=== PATIENT | female | born 1995 | race African-American/Black ===

== ENCOUNTER 2016-07-14 10:17 | Emergency (ER) | payer SELFPAY ==
[2016-07-14 10:23] VITALS: BP 124/79
--- NOTE | 2016-07-14 10:29 | ER Document Report ---
ED Medical Screen (RME) - General Stated Complaint: ABSCESS Mode of Arrival: Ambulatory Information source: Patient Notes: Pt presents with complaints of not on vaginal area for the past 2 days. Denies fever vomiting diarrhea. TRAVEL OUTSIDE OF THE [place] IN LAST 30 DAYS: No - Related Data Allergies/Adverse Reactions: No Known Allergies Allergy (Unverified 09/25/14 00:42) Past Medical History - Immunizations Immunizations up to date: Yes Hx Diphtheria, Pertussis, Tetanus Vaccination: Yes Physical Exam - Vital signs Vitals: Temp Pulse Resp BP Pulse Ox 98.1 F 95 16 124/79 100 07/14/16 10:22 07/14/16 10:22 07/14/16 10:22 07/14/16 10:22 07/14/16 10:22 Course - Vital Signs Vital signs: Temp Pulse Resp BP Pulse Ox 98.1 F 95 16 124/79 100 07/14/16 10:22 07/14/16 10:22 07/14/16 10:22 07/14/16 10:22 07/14/16 10:22
--- NOTE | 2016-07-14 11:39 | ER Document Report ---
ED General - General Chief Complaint: Abscess Stated Complaint: ABSCESS Mode of Arrival: Ambulatory TRAVEL OUTSIDE OF THE [place] IN LAST 30 DAYS: No - HPI Onset: Other - 21-year-old female presents to the emergency room today stating she has a bump on her right vaginal labia for 2 days. - Related Data Allergies/Adverse Reactions: No Known Allergies Allergy (Verified 07/14/16 10:30) Past Medical History - General Information source: Patient - Social History Smoking Status: Never Smoker Chew tobacco use (# tins/day): No Frequency of alcohol use: None Drug Abuse: None Family History: Reviewed & Not Pertinent Patient has suicidal ideation: No Patient has homicidal ideation: No Renal/ Medical History: Denies: Hx Peritoneal Dialysis - Immunizations Immunizations up to date: Yes Hx Diphtheria, Pertussis, Tetanus Vaccination: Yes Review of Systems - Review of Systems Constitutional: No symptoms reported EENT: No symptoms reported Cardiovascular: No symptoms reported Respiratory: No symptoms reported Gastrointestinal: No symptoms reported Genitourinary: No symptoms reported Female Genitourinary: No symptoms reported Musculoskeletal: No symptoms reported Skin: No symptoms reported Hematologic/Lymphatic: No symptoms reported Neurological/Psychological: No symptoms reported Physical Exam - Vital signs Vitals: Temp Pulse Resp BP Pulse Ox 98.1 F 95 16 124/79 100 07/14/16 10:22 07/14/16 10:22 07/14/16 10:22 07/14/16 10:22 07/14/16 10:22 Interpretation: Normal - General General appearance: Appears well, Alert - HEENT Head: Normocephalic, Atraumatic Eyes: Normal Pupils: PERRL - Respiratory Respiratory status: No respiratory distress Chest status: Nontender Breath sounds: Normal Chest palpation: Normal - Cardiovascular Rhythm: Regular Heart sounds: Normal auscultation Murmur: No - Abdominal Inspection: Normal Distension: No distension Bowel sounds: Normal Tenderness: Nontender Organomegaly: No organomegaly - Genitourinary External exam: Other - Tender cellulitic area right labia no fluctuance noted at this point in time. - Back Back: Normal, Nontender - Extremities General upper extremity: Normal inspection, Nontender, Normal color, Normal ROM , Normal temperature General lower extremity: Normal inspection, Nontender, Normal color, Normal ROM , Normal temperature, Normal weight bearing. No: Jamarcus's sign - Neurological Neuro grossly intact: Yes Cognition: Normal Orientation: AAOx4 [place] Coma Scale Eye Opening: Spontaneous [place] Coma Scale Verbal: Oriented [place] Coma Scale Motor: Obeys Commands [place] Coma Scale Total: 15 Speech: Normal Motor strength normal: LUE, RUE, LLE, RLE Sensory: Normal - Psychological Associated symptoms: Normal affect, Normal mood - Skin Skin Temperature: Warm Skin Moisture: Dry Skin Color: Normal Course - Vital Signs Vital signs: Temp Pulse Resp BP Pulse Ox 98.1 F 95 16 124/79 100 07/14/16 10:22 07/14/16 10:22 07/14/16 10:22 07/14/16 10:22 07/14/16 10:22 Discharge - Discharge Clinical Impression: Folliculitis Cellulitis Qualifiers: Site of cellulitis: other site Qualified Code(s): L03.818 - Cellulitis of other sites Disposition: HOME, SELF-CARE Instructions: Trimethoprim-Sulfa ([facility]) Additional Instructions: Warm soaks 4-5 times a day. Follow-up with [facility] in 3-4 days. Return to the emergency room for any change worsening condition. Prescriptions: Tramadol HCl [Ultram 50 mg Tablet] 50 mg PO Q6HP PRN #40 tablet PRN Reason: Naproxen Sodium [Naproxen Sodium ER] 500 mg PO Q12 PRN #20 tablet.sa PRN Reason: Sulfamethoxazole/Trimethoprim [Septra-Ds 800-160 mg Tablet] 1 tab PO BID #20 tablet
== END 2016-07-14 11:44 | disposition home or self-care (01) ==
LOC: ER 10:17
DX: L03.818 Cellulitis of other sites (principal); L73.9 Follicular disorder, unspecified; N76.0 Acute vaginitis
CPT/HCPCS: 99282

== ENCOUNTER 2016-12-08 14:19 | Emergency (ER) | payer MEDICAID ==
[2016-12-08 14:36] VITALS: BP 143/83
--- NOTE | 2016-12-08 15:10 | ER Document Report ---
ED Medical Screen (RME) - General Chief Complaint: Abdominal Cramping Stated Complaint: VOMITING Time Seen by Provider: 12/08/16 15:05 Notes: 21-year-old female reports onset yesterday of pelvic cramping that causes her to vomit. Last menstrual period was sometime last month. Denies vaginal discharge, denies fever. I have greeted and performed a rapid initial assessment of this patient. A comprehensive ED assessment and evaluation of the patient, analysis of test results and completion of the medical decision making process will be conducted by additional ED providers. TRAVEL OUTSIDE OF THE [place] IN LAST 30 DAYS: No - Related Data Allergies/Adverse Reactions: No Known Allergies Allergy (Verified 12/08/16 14:33) Past Medical History - Social History Chew tobacco use (# tins/day): No Frequency of alcohol use: Rare Drug Abuse: None Renal/ Medical History: Denies: Hx Peritoneal Dialysis Surgical Hx: Negative - Immunizations Immunizations up to date: Yes Hx Diphtheria, Pertussis, Tetanus Vaccination: Yes Physical Exam - Vital signs Vitals: Temp Pulse Resp BP Pulse Ox 98 F 91 20 143/83 H 100 12/08/16 14:33 12/08/16 14:33 12/08/16 14:33 12/08/16 14:33 12/08/16 14:33 Course - Vital Signs Vital signs: Temp Pulse Resp BP Pulse Ox 98 F 91 20 143/83 H 100 12/08/16 14:33 12/08/16 14:33 12/08/16 14:33 12/08/16 14:33 12/08/16 14:33
[2016-12-08 15:34] LABS: ABSOLUTE BASOPHILS # (AUTO) 0.1 10^3/uL (0.0-0.2); ABSOLUTE EOSINOPHILS # (AUTO) 0.3 10^3/uL (0.0-0.6); ABSOLUTE NEUT (AUTO) 5.8 10^3/uL (1.7-8.2); BASOPHILS % (AUTO) 0.9 % (0-2); EOSINOPHILS % (AUTO) 2.9 % (0-6); HEMATOCRIT 38.1 % (36.0-47.0); HEMOGLOBIN 12.2 g/dL (12.0-15.5); HGB HCT DIFFERENCE -1.5; LYMPHOCYTES % (AUTO) 29.1 % (13-45); MEAN CORPUSCULAR HEMOGLOBIN 26.6 pg (27.0-33.4); MEAN CORPUSCULAR VOLUME 83 fl (80-97); MONOCYTES % (AUTO) 10.2 % (3-13); RED BLOOD COUNT 4.59 10^6/uL (3.72-5.28); RED CELL DISTRIBUTION WIDTH 14.7 % (11.5-14.0); SEGMENTED NEUTROPHILS % (AUTO) 56.9 % (42-78); WHITE BLOOD COUNT 10.2 10^3/uL (4.0-10.5)
[2016-12-08 15:43] LABS: APPEARANCE,URINE CLOUDY; BILIRUBIN,URINE NEGATIVE (NEGATIVE); GLUCOSE, URINE NEGATIVE (NEGATIVE); KETONES,URINE NEGATIVE (NEGATIVE); LEUKOCYTE ESTERASE,URINE MODERATE (NEGATIVE); NITRITE,URINE POSITIVE (NEGATIVE); PROTEIN,URINE NEGATIVE (NEGATIVE); URINE SPECIFIC GRAVITY 1.018
[2016-12-08 15:52] LABS: ALANINE AMINOTRANSFERASE 21 U/L (9-52); ALBUMIN 4.6 g/dL (3.5-5.0); ALKALINE PHOSPHATASE 60 U/L (38-126); ANION GAP 14 (5-19); ASPARTATE AMINO TRANSFERASE 26 U/L (14-36); BILIRUBIN,DIRECT 0.3 mg/dL (0.0-0.4); BILIRUBIN,TOTAL 0.7 mg/dL (0.2-1.3); BLOOD UREA NITROGEN 9 mg/dL (7-20); CALCIUM 9.4 mg/dL (8.4-10.2); CARBON DIOXIDE 24 mmol/L (22-30); CHLORIDE 104 mmol/L (98-107); CREATININE RESULT 0.58 mg/dL (0.52-1.25); GLUCOSE 81 mg/dL (75-110); POTASSIUM 3.7 mmol/L (3.6-5.0); SODIUM 141.8 mmol/L (137-145); TOTAL PROTEIN 8.3 g/dL (6.3-8.2)
[2016-12-08 17:04] LABS: CHLAM PCR DETECTED (NOT DETECT)
== END 2016-12-08 16:45 | disposition left against medical advice (07) ==
LOC: ER 14:19
DX: Z53.9 Procedure and treatment not carried out, unspecified reason (principal); R10.9 Unspecified abdominal pain; R11.10 Vomiting, unspecified; R10.2 Pelvic and perineal pain
CPT/HCPCS: 36415; 80053; 81001; 84703; 85025; 87491; 87591; 99281

== ENCOUNTER 2016-12-21 09:30 | Emergency (ER) | payer MEDICAID ==
--- NOTE | 2016-12-21 09:46 | ER Document Report ---
ED Medical Screen (RME) - General Chief Complaint: Abdominal Pain Stated Complaint: ABDOMINAL PAIN Time Seen by Provider: 12/21/16 09:42 Notes: Patient says she has been having lower back pains radiating around to the front on both sides over the past week. She has had some nausea but not vomiting and no diarrhea. Has had some urinary frequency, but no blood in the urine. No history of kidney stones or frequent kidney infections. Patient's last menstrual cycle was on now, it was late by 4 days and initially was just spotting. She is on no control. Has never been . On no prescription medications. TRAVEL OUTSIDE OF THE [place] IN LAST 30 DAYS: No - Related Data Allergies/Adverse Reactions: No Known Allergies Allergy (Verified 12/21/16 09:34) Past Medical History Renal/ Medical History: Denies: Hx Peritoneal Dialysis - Immunizations Immunizations up to date: Yes Hx Diphtheria, Pertussis, Tetanus Vaccination: Yes Physical Exam - Vital signs Vitals: Temp Pulse Resp BP Pulse Ox 98.4 F 87 16 143/85 H 97 12/21/16 09:33 12/21/16 09:33 12/21/16 09:33 12/21/16 09:33 12/21/16 09:33 Course - Vital Signs Vital signs: Temp Pulse Resp BP Pulse Ox 98.4 F 87 16 143/85 H 97 12/21/16 09:33 12/21/16 09:33 12/21/16 09:33 12/21/16 09:33 12/21/16 09:33
--- NOTE | 2016-12-21 10:22 | ER Document Report ---
ED GI/ - General Mode of Arrival: Ambulatory Information source: Patient TRAVEL OUTSIDE OF THE [place] IN LAST 30 DAYS: No - HPI Patient complains to provider of: Pelvic pain Onset: Other - Refer to HPI note Similar symptoms previously: Yes Recently seen / treated by doctor: Yes - 12/08/16 <JACKIE DOYLE - Last Filed: 12/21/16 11:22> <MELIDA GUTIERREZ - Last Filed: 12/21/16 14:38> - General Chief Complaint: Abdominal Pain Stated Complaint: ABDOMINAL PAIN Time Seen by Provider: 12/21/16 09:42 Notes: Patient is a 21 year old female presenting to the emergency department for low back pain that radiates around to the front. Patient states she is currently on her menstrual cycle and it came 4 days late; patient also states her period was just spotting at first but is now regular. Patient also complains of urinary frequency and nausea. Patient denies vomiting or diarrhea. Patient denies any history of pregnancies or use of control. According to [facility] ED records, the patient was seen in triage on 12/08/16. Patient's urine was collected and the patient left without treatment because her ride had to leave. Patient did not leave an updated phone number when she was here on 12/08/16. Patient's urine on 12/08/16 tested positive for chlamydia; patient has not been treated for such and was not able to be reached by phone. Patient has no known drug allergies. (JACKIE DOYLE) - Related Data Allergies/Adverse Reactions: No Known Allergies Allergy (Verified 12/21/16 09:34) Past Medical History - General Information source: Patient - Social History Smoking Status: Unknown if Ever Smoked Family History: None Patient has suicidal ideation: No Patient has homicidal ideation: No Surgical Hx: Negative - Immunizations Immunizations up to date: Yes Hx Diphtheria, Pertussis, Tetanus Vaccination: Yes <JACKIE DOYLE - Last Filed: 12/21/16 11:22> Review of Systems - Review of Systems Constitutional: No symptoms reported EENT: No symptoms reported Cardiovascular: No symptoms reported Respiratory: No symptoms reported Gastrointestinal: No symptoms reported Genitourinary: No symptoms reported Female Genitourinary: See HPI, Last menstrual period, Vaginal bleeding Musculoskeletal: See HPI, Back pain Skin: No symptoms reported Hematologic/Lymphatic: No symptoms reported Neurological/Psychological: No symptoms reported -: Yes All other systems reviewed and negative <JACKIE DOYLE - Last Filed: 12/21/16 11:22> Physical Exam - Vital signs Interpretation: Normal - General General appearance: Appears well, Alert In distress: Mild - HEENT Head: Normocephalic, Atraumatic Eyes: Normal Pupils: PERRL Mucous membranes: Moist - Respiratory Respiratory status: No respiratory distress Chest status: Nontender Breath sounds: Normal Chest palpation: Normal - Cardiovascular Rhythm: Regular Heart sounds: Normal auscultation Murmur: No - Abdominal Inspection: Normal Distension: No distension Bowel sounds: Normal Tenderness: Tender - mild diffuse tenderness across the lower abdomen Organomegaly: No organomegaly - Back Back: Normal, Nontender - Extremities General upper extremity: Normal inspection, Normal ROM, Normal strength General lower extremity: Normal inspection, Normal ROM, Normal strength - Neurological Neuro grossly intact: Yes Cognition: Normal Orientation: AAOx4 Mary Kay Coma Scale Eye Opening: Spontaneous [place] Coma Scale Verbal: Oriented [place] Coma Scale Motor: Obeys Commands Mary Kay Coma Scale Total: 15 Speech: Normal - Psychological Associated symptoms: Normal affect, Normal mood - Skin Skin Temperature: Warm Skin Moisture: Dry <JACKIE DOYLE - Last Filed: 12/21/16 11:22> <MELIDA GUTIERREZ - Last Filed: 12/21/16 14:38> - Vital signs Vitals: Temp Pulse Resp BP Pulse Ox 98.4 F 87 16 143/85 H 97 12/21/16 09:33 12/21/16 09:33 12/21/16 09:33 12/21/16 09:33 12/21/16 09:33 Course - Laboratory Result Diagrams: 12/21/16 09:48 12/21/16 09:48 <JACKIE DOYLE - Last Filed: 12/21/16 11:22> - Laboratory Result Diagrams: 12/21/16 09:48 12/21/16 09:48 <MELIDA GUTIERREZ - Last Filed: 12/21/16 14:38> - Vital Signs Vital signs: Temp Pulse Resp BP Pulse Ox 98.8 F 76 16 130/75 H 100 12/21/16 14:24 12/21/16 14:24 12/21/16 14:24 12/21/16 14:24 12/21/16 14:24 - Laboratory Laboratory results interpreted by me: 12/21/16 12/21/16 12/21/16 09:48 09:48 09:48 Hgb 11.6 L MCH 26.5 L MCHC 31.9 L RDW 14.9 H Serum HCG, Qual POSITIVE H Beta HCG, Quant Urine Protein 30 H Urine Blood LARGE H Ur Leukocyte Esterase LARGE H 12/21/16 09:48 Hgb MCH MCHC RDW Serum HCG, Qual Beta HCG, Quant 26.76 H Urine Protein Urine Blood Ur Leukocyte Esterase Discharge <JACKIE DOYLE - Last Filed: 12/21/16 11:22> <MELIDA GUTIERREZ - Last Filed: 12/21/16 14:38> - Discharge Clinical Impression: Chlamydia infection, PID (acute pelvic inflammatory disease), Miscarriage Condition: Stable Disposition: HOME, SELF-CARE Additional Instructions: Chlamydia: You have a chlamydia infection. Chlamydia is a germ that grows inside the cells of the mucous membranes. It often infects the eyes, urethra, and fallopian tubes. It can cause chronic pain and scar tissue if untreated. Antibiotics are used to treat chlamydia. It's important to take all the medicine even if there are no symptoms. Use condoms to prevent spread of the infection. Because this infection can spread by sexual contact, it's important that your sexual partner be checked before resuming sexual relations. A positive test for chlamydia has to be reported to the health department. Call the doctor or return at once if you develop increasing fever, rash, severe pelvic pain, vaginal bleeding (other than your period), or problems with your bladder or bowels. Urinary Tract Infection: Your evaluation indicates that you have a urinary tract infection. This is due to germs growing in the bladder. This is a common problem. This infection usually responds quickly to antibiotics. Your antibiotic should be taken exactly as prescribed. Drink plenty of fluids -- three to four quarts a day. Occasionally, a bladder anesthetic will be prescribed to help stop the feeling of urgency until the antibiotic has a chance to clear the infection. This may cause your urine to be dark orange. Certain urine infections require a culture. If the doctor obtained a culture, the results will be back in two days. You should call to see if a change in treatment is needed. A repeat urinalysis after you finish treatment is often recommended. The physician will let you know if further testing is required. Call the doctor if you develop fever, chills, flank pain, inability to urinate, or blood in the urine. Bleeding During Early : You have been evaluated for passing blood while . (A miscarriage occurs when the fetus is abnormal. There is no medicine or treatment to prevent it.) A more serious cause of bleeding is tubal . An ultrasound can show whether the is in the uterus or in the tube. Sometimes in early , no fetus is seen. In this case, careful follow-up, including repeat blood tests and repeat ultrasound, is necessary. You should rest in bed until the symptoms have resolved. Do not douche or have sex for at least a week, or until OK'd by the doctor. Don't use tampons. YOUR HORMONE LEVEL IS VERY LOW. NO WAS SEEN ON ULTRASOUND. YOU ARE PROBABLY HAVING A MISCARRIAGE. A REPEAT HORMONE LEVEL SHOULD BE DONE IN 2-3 DAYS TO CONFIRM A MISCARRIAGE VS AN EARLY . TAKE THE MEDICATION PRESCRIBED. DRINK PLENTY OF FLUIDS. RETURN TO THE EMERGENCY ROOM ON SUNDAY OR SUNDAY FOR RECHECK. RETURN TO THE EMERGENCY ROOM SOONER IF ANY NEW OR WORSENING SYMPTOMS. Prescriptions: Cephalexin Monohydrate [Keflex 500 mg Capsule] 500 mg PO TID #15 capsule Scribe Attestation: 12/21/16 14:38 I personally performed the services described in the documentation, reviewed and edited the documentation which was dictated to the scribe in my presence, and it accurately records my words and actions. (MELIDA GUTIERREZ) Scribe Documentation - Scribe Written by Marion:: Marion Cartagena 12/21/16 10:52 acting as scribe for :: [place] <JACKIE DOYLE - Last Filed: 12/21/16 11:22>
[2016-12-21 10:35] LABS: ABSOLUTE BASOPHILS # (AUTO) 0.1 10^3/uL (0.0-0.2); ABSOLUTE EOSINOPHILS # (AUTO) 0.2 10^3/uL (0.0-0.6); ABSOLUTE LYMPHOCYTES (AUTO) 2.2 10^3/uL (0.5-4.7); ABSOLUTE MONOCYTES (AUTO) 0.7 10^3/uL (0.1-1.4); ABSOLUTE NEUT (AUTO) 4.9 10^3/uL (1.7-8.2); BASOPHILS % (AUTO) 0.9 % (0-2); EOSINOPHILS % (AUTO) 2.8 % (0-6); HEMATOCRIT 36.3 % (36.0-47.0); HEMOGLOBIN 11.6 g/dL (12.0-15.5); HGB HCT DIFFERENCE -1.5; LYMPHOCYTES % (AUTO) 27.2 % (13-45); MEAN CORPUSCULAR HEMOGLOBIN 26.5 pg (27.0-33.4); MEAN CORPUSCULAR HGB CONC 31.9 g/dL (32.0-36.0); MEAN CORPUSCULAR VOLUME 83 fl (80-97); MONOCYTES % (AUTO) 8.4 % (3-13); RED BLOOD COUNT 4.36 10^6/uL (3.72-5.28); RED CELL DISTRIBUTION WIDTH 14.9 % (11.5-14.0); SEGMENTED NEUTROPHILS % (AUTO) 60.7 % (42-78)
[2016-12-21 10:44] LABS: APPEARANCE,URINE CLOUDY; BILIRUBIN,URINE NEGATIVE (NEGATIVE); GLUCOSE, URINE NEGATIVE (NEGATIVE); KETONES,URINE NEGATIVE (NEGATIVE); LEUKOCYTE ESTERASE,URINE LARGE (NEGATIVE); NITRITE,URINE NEGATIVE (NEGATIVE); PROTEIN,URINE 30 mg/dL (NEGATIVE); URINE SPECIFIC GRAVITY 1.016; UROBILINOGEN,URINE NEGATIVE mg/dL (<2.0)
[2016-12-21 10:56] LABS: ALANINE AMINOTRANSFERASE 18 U/L (9-52); ALBUMIN 4.4 g/dL (3.5-5.0); ALKALINE PHOSPHATASE 59 U/L (38-126); ANION GAP 13 (5-19); ASPARTATE AMINO TRANSFERASE 21 U/L (14-36); BILIRUBIN,DIRECT 0.3 mg/dL (0.0-0.4); BILIRUBIN,TOTAL 0.7 mg/dL (0.2-1.3); BLOOD UREA NITROGEN 9 mg/dL (7-20); CALCIUM 9.7 mg/dL (8.4-10.2); CARBON DIOXIDE 22 mmol/L (22-30); CHLORIDE 106 mmol/L (98-107); CREATININE RESULT 0.61 mg/dL (0.52-1.25); GLUCOSE 96 mg/dL (75-110); LIPASE 46.4 U/L (23-300); POTASSIUM 4.2 mmol/L (3.6-5.0); SODIUM 141.2 mmol/L (137-145); TOTAL PROTEIN 7.9 g/dL (6.3-8.2)
[2016-12-21] MEDS ORDERED: AZITHROMYCIN 250 MG TABLET PO ONE (10:56)
[2016-12-21] MEDS ORDERED: CEFTRIAXONE INJ 1000 MG VIAL IM ONE (10:56)
[2016-12-21 11:15] LABS: ADD ON TESTING BLD IN LAB ACKNOWLEDGE
[2016-12-21] MEDS ORDERED: LIDOCAINE 1% INJ-PF (10 MG/ML) 30 ML SDV INJ ONE (11:15)
--- NOTE | 2016-12-21 14:17 | RADIOLOGY REPORT (SQ) ---
EXAM DESCRIPTION: U/S OB TRANSVAGINAL W/O DOP COMPLETED DATE/TIME: 12/21/2016 1:54 pm REASON FOR STUDY: pelvic pain, + chlamydia COMPARISON: None. TECHNIQUE: Transvaginal static and realtime grayscale images acquired of the pelvis. Additional maximus cted spectral and color Doppler images recorded. All images stored on PACs. [facility] LIMITATIONS: None. FINDINGS: No intrauterine gestational sac is identified. UTERUS: 85 x 48 x 39 mm. No intrauterine . No masses. CERVICAL LENGTH: Not applicable. Less than 6 weeks. Closed. RIGHT ADNEXA: Not identified. No adnexal free fluid. No adnexal masses. LEFT ADNEXA: 34 x 26 x 18 mm. Normal. No adnexal free fluid. No adnexal masses. FREE FLUID: There is a trace amount of free fluid in the cul-de-sac. OTHER: No other significant finding. IMPRESSION: No intrauterine gestation is seen. Follow-up as may be clinically indicated. Trimester of : First - 0 to 13 weeks. TECHNICAL DOCUMENTATION: JOB ID: [id number] [employer]- All Rights Reserved
[2016-12-21 14:26] VITALS: BP 130/75
== END 2016-12-21 14:48 | disposition home or self-care (01) ==
LOC: ER 09:30
DX: O03.9 Complete or unspecified spontaneous abortion without complication (principal); O03.5 Genital tract and pelvic infection following complete or unspecified spontaneous abortion; A56.11 Chlamydial female pelvic inflammatory disease
CPT/HCPCS: 99284; 96372; 36415; 87086; 84702; 83690; 84703; 85025; 87088; 80053; 81001; 87186; 76817; J3490; J0696

== ENCOUNTER → 2016-12-23 | Outpatient (CLI) | payer MEDICAID | LOC: LAB 09:11 | PROVIDERS: ATTEND Specialist | DX: O20.0 Threatened abortion (principal) | CPT/HCPCS: 36415; 84702 ==

== ENCOUNTER 2016-12-29 11:53 | Emergency (ER) | payer MEDICAID ==
--- NOTE | 2016-12-29 12:29 | ER Document Report ---
ED GI/ - General Mode of Arrival: Ambulatory Information source: Patient TRAVEL OUTSIDE OF THE [place] 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 Patient reports that she was seen in the ED on 12/21/2016 regarding the vaginal bleeding and was told she was . Patient has since been seeing the health department related to her with her most recent appointment 3 days ago. 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 Patient is currently complaining of nausea, but denies abdominal pain, fever, vomiting, chills, chest pain, or shortness of breath. Patient was diagnosed with a UTI on her last visit to the ED and was given an antibiotic prescription, but states that she lost it and was afraid of taking it because of her . Patient is currently taking vitamins. (WESTON VICTORIA) - Related Data Allergies/Adverse Reactions: No Known Allergies Allergy (Verified 12/21/16 09:34) Past Medical History - General Information source: Patient Last Menstrual Period: 11/14/2016 - Social History Smoking Status: Never Smoker Cigarette use (# per day): No Chew tobacco use (# tins/day): No Frequency of alcohol use: None Family History: None Patient has suicidal ideation: No Patient has homicidal ideation: No Renal/ Medical History: Denies: Hx Peritoneal Dialysis - Immunizations Immunizations up to date: Yes Hx Diphtheria, Pertussis, Tetanus Vaccination: Yes <WESTON VICTORIA - Last Filed: 12/29/16 13:40> Review of Systems - Review of Systems Constitutional: No symptoms reported. denies: Chills EENT: No symptoms reported Cardiovascular: No symptoms reported. denies: Chest pain Respiratory: No symptoms reported. denies: Short of breath Gastrointestinal: See HPI, Nausea. denies: Abdominal pain, Vomiting Genitourinary: No symptoms reported Female Genitourinary: See HPI, - 6 weeks, Vaginal bleeding Musculoskeletal: No symptoms reported Skin: No symptoms reported Hematologic/Lymphatic: No symptoms reported Neurological/Psychological: No symptoms reported -: Yes All other systems reviewed and negative <WESTON VICTORIA - Last Filed: 12/29/16 13:40> Physical Exam - General General appearance: Alert In distress: None - Respiratory Respiratory status: No respiratory distress Breath sounds: Normal - Cardiovascular Rhythm: Regular Heart sounds: Normal auscultation Murmur: No Friction rub: No Gallop: None auscultated - Abdominal Inspection: Normal Distension: No distension Bowel sounds: Normal Tenderness: Nontender <WESTON VICTORIA - Last Filed: 12/29/16 13:40> - HEENT Head: Normocephalic, Atraumatic - Extremities General upper extremity: Normal ROM General lower extremity: Normal ROM - Neurological Neuro grossly intact: Yes Cognition: Normal Orientation: AAOx4 - Skin Skin Temperature: Warm Skin Moisture: Dry Skin Color: Normal <MAIN BAEZ - Last Filed: 12/29/16 13:52> - Vital signs Vitals: Temp Pulse Resp BP Pulse Ox 98.1 F 77 16 142/89 H 99 12/29/16 11:54 12/29/16 11:54 12/29/16 11:54 12/29/16 11:54 12/29/16 11:54 Course <WESTON VICTORIA - Last Filed: 12/29/16 13:40> <MAIN BAEZ - Last Filed: 12/29/16 13:52> - Re-evaluation Re-evalutation: 12/29/16 13:49 Quantitative hCG has doubled compared to last value, urinalysis shows trace ketones and moderate blood but no longer any signs of infection. Patient will not be treated for urinary tract infection at this time. Patient is still below the discriminatory zone where we would expect to see a on ultrasound. She is having no lower abdominal pain. I have low suspicion for ectopic . Patient is still at risk for miscarriage given the bleeding although this could be implantation bleeding. Patient is recommended to continue to have her quantitative hCG repeated every 2-3 days as long as her bleeding continues. If the bleeding slows she does not need to have it repeated. She will follow up with [facility] as an outpatient. (MAIN BAEZ) - Vital Signs Vital signs: Temp Pulse Resp BP Pulse Ox 98.1 F 77 16 142/89 H 99 12/29/16 11:54 12/29/16 11:54 12/29/16 11:54 12/29/16 11:54 12/29/16 11:54 - Laboratory Laboratory results interpreted by me: 12/29/16 12/29/16 12:35 12:35 Beta HCG, Quant 87.72 H Urine Ketones TRACE H Urine Blood MODERATE H Discharge <WESTON VICTORIA - Last Filed: 12/29/16 13:40> <MAIN BAEZ - Last Filed: 12/29/16 13:52> - Discharge Clinical Impression: Threatened miscarriage in early , Vaginal bleeding before 22 weeks gestation, Elevated blood pressure reading Condition: Stable Disposition: HOME, SELF-CARE Additional Instructions: Bleeding During Early You have been evaluated for passing blood while . While we take this symptom very seriously, most women with your degree of bleeding will go on to have a perfectly normal baby. At this time, there is no indication that a miscarriage will occur. (A miscarriage occurs when the fetus is abnormal. There is no medicine or treatment to prevent it.) A more serious cause of bleeding is tubal . An ultrasound can show whether the is in the uterus or in the tube. Sometimes in early , no fetus is seen. In this case, careful follow-up, including repeat blood tests and repeat ultrasound, is necessary. Do not put anything in your vagina. Do not douche or have sex for at least a week, or until OK'd by the doctor. Don't use tampons. Call the doctor or return for re-examination if there is an increase in bleeding or cramping, extreme weakness, fainting, new abdominal pain, fever, or passage of tissue. Forms: Elevated Blood Pressure Referrals: JEANNE SARABIA MD [ACTIVE STAFF] - Follow up in 3-5 days Scribe Attestation: 12/29/16 13:52 I personally performed the services described in the documentation, reviewed and edited the documentation which was dictated to the scribe in my presence, and it accurately records my words and actions. (MAIN BAEZ) Scribe Documentation - Scribe Written by Marion:: Marion Curry, 12/29/2016 1345 acting as scribe for :: Jaime <WESTON VICTORIA - Last Filed: 12/29/16 13:40>
[2016-12-29 13:05] LABS: APPEARANCE,URINE CLEAR; BILIRUBIN,URINE NEGATIVE (NEGATIVE); GLUCOSE, URINE NEGATIVE (NEGATIVE); KETONES,URINE TRACE mg/dL (NEGATIVE); LEUKOCYTE ESTERASE,URINE NEGATIVE (NEGATIVE); NITRITE,URINE NEGATIVE (NEGATIVE); PROTEIN,URINE NEGATIVE (NEGATIVE); URINE SPECIFIC GRAVITY 1.006; UROBILINOGEN,URINE NEGATIVE mg/dL (<2.0)
[2016-12-29 16:22] VITALS: BP 121/78
== END 2016-12-29 14:05 | disposition home or self-care (01) ==
LOC: ER 11:53
DX: O20.0 Threatened abortion (principal); O26.891 Other specified pregnancy related conditions, first trimester; R11.0 Nausea; R03.0 Elevated blood-pressure reading, without diagnosis of hypertension; Z3A.01 Less than 8 weeks gestation of pregnancy; Z79.899 Other long term (current) drug therapy; Z87.440 Personal history of urinary (tract) infections
CPT/HCPCS: 36415; 81001; 84702; 99284

== ENCOUNTER 2017-01-04 16:19 | Emergency (ER) | payer MEDICAID ==
[2017-01-04 16:37] VITALS: BP 146/84
--- NOTE | 2017-01-04 17:16 | ER Document Report ---
ED Medical Screen (RME) - General Chief Complaint: Vag Bleeding, +preg <12wks Stated Complaint: VAGINAL BLEEDING Time Seen by Provider: 01/04/17 17:10 Notes: Patient is approximately 7 weeks and having some vaginal bleeding. She says she has been having very light bleeding for a couple of weeks but today it worsened. Patient has been seen here on 2 previous occasions, once about 2-3 weeks ago and her hormone levels were found to be low and then she was back about a week ago and had a repeat of her levels. Her quantitative hCG has never gotten above about 87 on December 29. She had an ultrasound done here which did not show anything. Patient denies any fevers. TRAVEL OUTSIDE OF THE [place] IN LAST 30 DAYS: No - Related Data Allergies/Adverse Reactions: No Known Allergies Allergy (Verified 01/04/17 16:31) Past Medical History - Social History Chew tobacco use (# tins/day): No Frequency of alcohol use: None Drug Abuse: None Pulmonary Medical History: Reports: Hx Asthma - childhood Renal/ Medical History: Denies: Hx Peritoneal Dialysis Surgical Hx: Negative - Immunizations Immunizations up to date: Yes Hx Diphtheria, Pertussis, Tetanus Vaccination: Yes Physical Exam - Vital signs Vitals: Temp Pulse Resp BP Pulse Ox 98.5 F 95 14 146/84 H 98 01/04/17 16:34 01/04/17 16:34 01/04/17 16:34 01/04/17 16:34 01/04/17 16:34 Course - Vital Signs Vital signs: Temp Pulse Resp BP Pulse Ox 98.5 F 95 14 146/84 H 98 01/04/17 16:34 01/04/17 16:34 01/04/17 16:34 01/04/17 16:34 01/04/17 16:34
[2017-01-04 17:36] LABS: ABSOLUTE BASOPHILS # (AUTO) 0.1 10^3/uL (0.0-0.2); ABSOLUTE EOSINOPHILS # (AUTO) 0.2 10^3/uL (0.0-0.6); ABSOLUTE LYMPHOCYTES (AUTO) 2.5 10^3/uL (0.5-4.7); ABSOLUTE MONOCYTES (AUTO) 0.9 10^3/uL (0.1-1.4); ABSOLUTE NEUT (AUTO) 5.5 10^3/uL (1.7-8.2); BASOPHILS % (AUTO) 1.1 % (0-2); EOSINOPHILS % (AUTO) 2.1 % (0-6); HEMATOCRIT 34.5 % (36.0-47.0); HEMOGLOBIN 10.9 g/dL (12.0-15.5); HGB HCT DIFFERENCE -1.8; LYMPHOCYTES % (AUTO) 27.1 % (13-45); MEAN CORPUSCULAR HEMOGLOBIN 26.1 pg (27.0-33.4); MEAN CORPUSCULAR HGB CONC 31.5 g/dL (32.0-36.0); MEAN CORPUSCULAR VOLUME 83 fl (80-97); MONOCYTES % (AUTO) 9.6 % (3-13); RED BLOOD COUNT 4.17 10^6/uL (3.72-5.28); RED CELL DISTRIBUTION WIDTH 14.7 % (11.5-14.0); SEGMENTED NEUTROPHILS % (AUTO) 60.1 % (42-78); WHITE BLOOD COUNT 9.2 10^3/uL (4.0-10.5)
== END 2017-01-04 20:25 | disposition left against medical advice (07) ==
LOC: ER 16:19
DX: Z53.9 Procedure and treatment not carried out, unspecified reason (principal); O46.91 Antepartum hemorrhage, unspecified, first trimester
CPT/HCPCS: 36415; 84702; 85025; 86850; 86900; 86901; 99281

== ENCOUNTER 2017-01-08 22:50 | Emergency (ER) | payer MEDICAID ==
[2017-01-08] MEDS ORDERED: ACETAMINOPHEN 325 MG TABLET PO ONE (23:09)
[2017-01-08 23:38] LABS: ABSOLUTE BASOPHILS # (AUTO) 0.1 10^3/uL (0.0-0.2); ABSOLUTE EOSINOPHILS # (AUTO) 0.3 10^3/uL (0.0-0.6); ABSOLUTE LYMPHOCYTES (AUTO) 3.5 10^3/uL (0.5-4.7); ABSOLUTE MONOCYTES (AUTO) 0.9 10^3/uL (0.1-1.4); ABSOLUTE NEUT (AUTO) 6.8 10^3/uL (1.7-8.2); EOSINOPHILS % (AUTO) 2.8 % (0-6); HEMATOCRIT 32.8 % (36.0-47.0); HEMOGLOBIN 10.3 g/dL (12.0-15.5); HGB HCT DIFFERENCE -1.9; LYMPHOCYTES % (AUTO) 30.2 % (13-45); MEAN CORPUSCULAR HEMOGLOBIN 25.8 pg (27.0-33.4); MEAN CORPUSCULAR HGB CONC 31.5 g/dL (32.0-36.0); MEAN CORPUSCULAR VOLUME 82 fl (80-97); MONOCYTES % (AUTO) 7.4 % (3-13); RED BLOOD COUNT 4.01 10^6/uL (3.72-5.28); RED CELL DISTRIBUTION WIDTH 15.1 % (11.5-14.0); SEGMENTED NEUTROPHILS % (AUTO) 58.6 % (42-78); WHITE BLOOD COUNT 11.6 10^3/uL (4.0-10.5)
[2017-01-08 23:44] LABS: AMORPHOUS SEDIMENT,URINE TRACE /HPF; APPEARANCE,URINE CLOUDY; BILIRUBIN,URINE NEGATIVE (NEGATIVE); GLUCOSE, URINE NEGATIVE (NEGATIVE); KETONES,URINE NEGATIVE (NEGATIVE); LEUKOCYTE ESTERASE,URINE NEGATIVE (NEGATIVE); NITRITE,URINE NEGATIVE (NEGATIVE); PROTEIN,URINE 30 mg/dL (NEGATIVE); URINE SPECIFIC GRAVITY 1.019
--- NOTE | 2017-01-09 02:14 | ER Document Report ---
ED GI/ - General Chief Complaint: Vag Bleeding, +preg <12wks Stated Complaint: LOWER BACK BACK Time Seen by Provider: 01/09/17 00:30 Notes: The patient is a 21-year-old female, LMP 11/14/16 (~7weeks ago), presents with intermittent lower abdominal cramping, back pain and vaginal bleeding. She was seen in the ER twice for vaginal bleeding and her beta hCG is only slowly rising. She saw the OB yesterday and was told that she would need repeat HCG's every 2-3 days. She denies current abdominal pain, nausea, vomiting, heavy vaginal bleeding, passage of clots, fevers or urinary symptoms. TRAVEL OUTSIDE OF THE [place] IN LAST 30 DAYS: No - Related Data Allergies/Adverse Reactions: No Known Allergies Allergy (Verified 01/04/17 16:31) Past Medical History - General Information source: Patient - Social History Smoking Status: Never Smoker Family History: None Patient has suicidal ideation: No Patient has homicidal ideation: No Pulmonary Medical History: Reports: Hx Asthma - childhood Renal/ Medical History: Denies: Hx Peritoneal Dialysis - Immunizations Immunizations up to date: Yes Hx Diphtheria, Pertussis, Tetanus Vaccination: Yes Review of Systems - Review of Systems Notes: REVIEW OF SYSTEMS: CONSTITUTIONAL: -fevers, -chills EENT: -eye pain, -difficulty swallowing, -nasal congestion CARDIOVASCULAR:-chest pain, -syncope. RESPIRATORY: -cough, -SOB GASTROINTESTINAL: +abdominal pain, -nausea, -vomiting, -diarrhea GENITOURINARY: -dysuria, -hematuria MUSCULOSKELETAL: -back pain, -neck pain SKIN: -rash or skin lesions. HEMATOLOGIC: -easy bruising or bleeding. LYMPHATIC: -swollen, enlarged glands. NEUROLOGICAL: -altered mental status or loss of consciousness, -headache, - neurologic symptoms PSYCHIATRIC: -anxiety, -depression. ALL OTHER SYSTEMS REVIEWED AND NEGATIVE. Physical Exam - Vital signs Vitals: Temp Pulse Resp BP Pulse Ox 98.2 F 75 18 135/88 H 99 01/08/17 23:03 01/08/17 23:03 01/08/17 23:03 01/08/17 23:03 01/08/17 23:03 - Notes Notes: PHYSICAL EXAMINATION: GENERAL: Well-appearing, well-nourished and in no acute distress. HEAD: Atraumatic, normocephalic. EYES: Pupils equal round and reactive to light, extraocular movements intact, sclera anicteric, conjunctiva are normal. ENT: nares patent, oropharynx clear without exudates. Moist mucous membranes. NECK: Normal range of motion, supple without lymphadenopathy LUNGS: Breath sounds clear to auscultation bilaterally and equal. No wheezes rales or rhonchi. HEART: Regular rate and rhythm without murmurs ABDOMEN: Soft, nontender, normoactive bowel sounds. No guarding, no rebound. No masses appreciated. EXTREMITIES: Normal range of motion, no pitting or edema. No cyanosis. NEUROLOGICAL: Cranial nerves grossly intact. Normal speech, normal gait. Normal sensory and motor exams. PSYCH: Normal mood, normal affect. SKIN: Warm, Dry, normal turgor, no rashes or lesions noted. Course - Re-evaluation Re-evalutation: Patient's beta hCG only rising slightly. US does not show any evidence of intrauterine . Told about the possibility of an ectopic. She appears well and has no abdominal pain or tenderness at this time. Instructed her to follow-up with OB in 2 days for a recheck. Given strict return precautions and she understands. - Vital Signs Vital signs: Temp Pulse Resp BP Pulse Ox 98.2 F 75 18 135/88 H 99 01/08/17 23:03 01/08/17 23:03 01/08/17 23:03 01/08/17 23:03 01/08/17 23:03 - Laboratory Result Diagrams: 01/08/17 23:17 Laboratory results interpreted by me: 01/08/17 01/08/17 01/08/17 23:17 23:17 23:17 WBC 11.6 H Hgb 10.3 L Hct 32.8 L MCH 25.8 L MCHC 31.5 L RDW 15.1 H Beta HCG, Quant 107.69 H Urine Protein 30 H Urine Blood MODERATE H Urine Urobilinogen 4.0 H - Diagnostic Test Radiology reviewed: Image reviewed, Reports reviewed Radiology results interpreted by me: Transvaginal US: NO VISUALIZED INTRA- OR EXTRAUTERINE . Small free fluid. bHCG LEVEL TOO LOW TO EXPECT VISUALIZATION OF . ECTOPIC CANNOT BE EXCLUDED. FOLLOW-UP ULTRASOUND AND SERIAL BHCG LEVELS STRONGLY RECOMMENDED TO ACCURATELY ASSESS STATUS. Discharge - Discharge Clinical Impression: Abdominal pain during Qualifiers: Trimester: first trimester Qualified Code(s): O26.891 - Other specified related conditions, first trimester; R10.9 - Unspecified abdominal pain Condition: Stable Disposition: HOME, SELF-CARE Additional Instructions: You must follow-up with your OB in 48 hours to have your blood work rechecked and possibly another ultrasound to make sure that you do not have an ectopic. : You are . care is best started as early in as possible. If you're unsure about continuing this , you should discuss this with your physician or with esl tutor at [facility]. You should take only medications approved by your physician. Acetaminophen can safely be taken for minor pains. As a rule, medication for chronic conditions such as asthma or seizures can safely be continued. You should discuss with the physician every medicine you take. Any regular exercise program can be continued. Talk to your physician, however, before engaging in competitive or demanding sports. Alcohol, smoking, and "street drugs" are dangerous to your baby. Cocaine is especially dangerous. Don't use any illicit drugs! BLEEDING DURING EARLY : You have been evaluated for passing blood while . While we take this symptom very seriously, most women with your degree of bleeding will go on to have a perfectly normal baby. At this time, there is no indication that a miscarriage will occur. (A miscarriage occurs when the fetus is abnormal. There is no medicine or treatment to prevent it.) A more serious cause of bleeding is tubal (or ectopic) . An ultrasound usually can show whether the is in the uterus or in the tube. Sometimes in early , no fetus is seen. In this case, careful follow-up, including repeat blood tests and repeat ultrasound, is necessary. Do not douche or have sex for at least a week, or until OK'd by the doctor. Don't use tampons. Call the doctor or return for re-examination if there is an increase in bleeding or cramping, extreme weakness, fainting, new abdominal pain, fever, or passage of tissue. THREATENED MISCARRIAGE: You have been evaluated for a possible miscarriage. At this time, there is no indication that a miscarriage will occur. Most women with your symptoms will go on to have a perfectly normal baby. However, careful observation will be necessary. A miscarriage occurs when the fetus is abnormal. There is no medicine or treatment for it. You should rest in bed until the symptoms have resolved. Do not douche or have sex for at least a week, or until OK'd by the doctor. Call the doctor or return for re-examination if there is an increase in bleeding or cramping, or passage of tissue. RHOGAM: Rhogam is given to a woman who has Rh negative blood type when she has vaginal bleeding during her or at the time of the delivery of her baby. If a woman is Rh negative, her body will form antibodies against red blood cells from an Rh positive fetus or baby that mix with her blood during a threatened or actual miscarraige or delivery. These antibodies will remain in the woman's body forever and will attack any future Rh positive fetus preventing it from developing into a normal baby. Rhogam is given to prevent the mother's body from forming these antibodies. REPEAT BLOOD TEST: At this time, it is uncertain if you have a viable . During the first three months of , the hormone produced from the placenta will steadily rise, usually doubling in value every 2 - 3 days. In order to determine if your is viable and likely be succesful, a repeat of this blood test for the hormone is recommended in 2 - 3 days. An order for this test to be done as an outpatient is being provided. After you have this repeat test done, call your doctor or call us for the results. If the value of the test is increasing as would be expected in a normal , then your is likely to be ok. However, if the value of the test is declining, it will suggest something has happened with your and it will not likely be a successful . FOLLOW-UP CARE: If you have been referred to a physician for follow-up care, call the physician s office for an appointment as you were instructed or within the next two days. If you experience worsening or a significant change in your symptoms (very heavy bleeding with large clots of blood, passage of tissue, more severe abdominal / pelvic pain or cramping, feeling faint or severe weakness, fever, etc.), notify the physician immediately or return to the Emergency Department at any time for re-evaluation. OBSTETRIC-GYNECOLOGIC (OB-DEVELOPMENT SPEC) PHYSICIANS IN [place]: [facility] [address] [place], [place] [phone] [facility] [address] [place] [address] [phone] For active duty and dependents diagnosed with a threatened or miscarriage, you should follow up in the following manner: Standard patients who have a local civilian provider should follow up with that provider. Patients of the Family Practice Clinic should call your Team Nurse at 8: 00 am the following morning for further instructions. If you are neither a Standard patient nor a patient of the Family Practice Clinic, you should follow up at the [facility] ([facility]) . Patients already enrolled in the [facility], Prime patients not assigned to the Family Practice Clinic, and Active Duty patients not assigned to [facility] should report to the [facility] at 8:00 am the next morning that the [facility] is open and then you will be seen in the OB Clinic at 11:00 am. Referrals: CELENA GREENBERG, [DEANA HERNANDEZ] - Follow up as needed
--- NOTE | 2017-01-09 02:28 | RADIOLOGY REPORT (SQ) ---
EXAM DESCRIPTION: U/S OB TRANSVAGINAL W/O DOP COMPLETED DATE/TIME: 01/09/2017 2:01 am REASON FOR STUDY: abdominal pain, +, HCG 105 COMPARISON: 12/21/2016. TECHNIQUE: Transvaginal static and realtime grayscale images acquired of the pelvis. Additional maximus cted spectral and color Doppler images recorded. All images stored on PACs. bHC LIMITATIONS: None. FINDINGS: UTERUS: No visualized intrauterine . Endometrial stripe measures 0.7 cm in thick ness and is homogeneous. No intrauterine gestational sac. No yolk sac. No pole. RIGHT ADNEXA: Normal ovary with normal vascular flow. No adnexal free fluid. No adnexal masses. 3.9 cm. LEFT ADNEXA: Normal ovary with normal vascular flow. No adnexal free fluid. No adnexal masses. 6.0 cm by 2.7 cm x 2.9 cm including a 2.4 x 2.2 x 2.0 cm complex cystic component with fluid fluid level. FREE FLUID: Small free fluid. OTHER: No other significant finding. IMPRESSION: NO VISUALIZED INTRA- OR EXTRAUTERINE . Small free fluid. bHCG LEVEL TOO LOW TO EXPECT VISUALIZATION OF . ECTOPIC CANNOT BE EXCLUDED. FOLLOW-UP ULTRASOUND AND SERIAL BHCG LEVELS STRONGLY RECOMMENDED TO ACCURATELY ASSESS STATU S. TECHNICAL DOCUMENTATION: JOB ID: [id number] [employer]- All Rights Reserved
[2017-01-09 03:09] VITALS: BP 122/86
== END 2017-01-09 03:09 | disposition home or self-care (01) ==
LOC: ER 22:50
DX: O26.891 Other specified pregnancy related conditions, first trimester (principal); O46.91 Antepartum hemorrhage, unspecified, first trimester; R10.30 Lower abdominal pain, unspecified; M54.9 Dorsalgia, unspecified; Z3A.01 Less than 8 weeks gestation of pregnancy
CPT/HCPCS: 99284; 86900; 86901; 36415; 86850; 84702; 85025; 81001; 76817; J2790; J3490

== ENCOUNTER 2017-02-21 09:14 | Emergency (ER) | payer MEDICAID ==
--- NOTE | 2017-02-21 10:43 | ER Document Report ---
ED GI/ - General Chief Complaint: Abdominal Cramping Stated Complaint: ABDOMINAL PAIN Time Seen by Provider: 02/21/17 10:30 Notes: 21yo female c/o lower abdominal cramping x 1 week. had ectopic 1 month ago. [facility]. Last HCG level per patient was drawn several weeks ago and was down to 9. discussed cramping with [facility] and they told her she should be starting her period soon and cramping is probably that. but pt did not start her period and is concerned. denies fever , urinary symptoms, vaginal discharge. + nausea, no vomiting TRAVEL OUTSIDE OF THE [place] IN LAST 30 DAYS: No - HPI Patient complains to provider of: Abdominal pain Timing/Duration: Intermittent Quality of pain: Cramping Vaginal bleeding (Compared to normal period): None Menstrual period history: Missed : 1 Sexual history: Active, Unprotected intercourse Associated symptoms: Nausea. denies: Dysuria Exacerbated by: Denies Relieved by: Denies Similar symptoms previously: Yes Recently seen / treated by doctor: No - Related Data Allergies/Adverse Reactions: No Known Allergies Allergy (Verified 02/21/17 09:40) Past Medical History - General Information source: Patient - Social History Smoking Status: Never Smoker Chew tobacco use (# tins/day): No Frequency of alcohol use: None Drug Abuse: None Lives with: Family Family History: None Patient has suicidal ideation: No Patient has homicidal ideation: No Pulmonary Medical History: Reports: Hx Asthma - childhood Renal/ Medical History: Denies: Hx Peritoneal Dialysis Surgical Hx: Negative - Immunizations Immunizations up to date: Yes Hx Diphtheria, Pertussis, Tetanus Vaccination: Yes Physical Exam - Vital signs Vitals: Temp Pulse Resp BP Pulse Ox 98.3 F 67 16 125/70 100 02/21/17 09:39 02/21/17 09:39 02/21/17 09:39 02/21/17 09:39 02/21/17 09:39 Interpretation: Normal - General General appearance: Appears well, Alert - HEENT Head: Normocephalic, Atraumatic Eyes: Normal Pupils: PERRL - Respiratory Respiratory status: No respiratory distress Chest status: Nontender Breath sounds: Normal Chest palpation: Normal - Cardiovascular Rhythm: Regular Heart sounds: Normal auscultation Murmur: No - Abdominal Inspection: Normal Distension: No distension Bowel sounds: Normal Tenderness: Tender - mild suprapubic tednerness. No: McBurney's point, Moore' s sign, Guarding, Rebound Organomegaly: No organomegaly - Back Back: Normal, Nontender - Extremities General upper extremity: Normal inspection, Nontender, Normal color, Normal ROM , Normal temperature General lower extremity: Normal inspection, Nontender, Normal color, Normal ROM , Normal temperature, Normal weight bearing. No: Jamarcus's sign - Neurological Neuro grossly intact: Yes Cognition: Normal Orientation: AAOx4 Mccleary Coma Scale Eye Opening: Spontaneous Mccleary Coma Scale Verbal: Oriented Mccleary Coma Scale Motor: Obeys Commands Mary Kay Coma Scale Total: 15 Speech: Normal Motor strength normal: LUE, RUE, LLE, RLE Sensory: Normal - Psychological Associated symptoms: Normal affect, Normal mood - Skin Skin Temperature: Warm Skin Moisture: Dry Skin Color: Normal Course - Re-evaluation Re-evalutation: 02/21/17 10:43 H&P c/w dysmenorrhea, but will check for potential infection 02/21/17 13:12 labs unremarkable. HCG negative. all results reviewed with patient. discomfort most likely dysmenorrhea. pt is stable for discharge and follow up with [facility] - Vital Signs Vital signs: Temp Pulse Resp BP Pulse Ox 98.3 F 67 16 125/70 100 02/21/17 09:39 02/21/17 09:39 02/21/17 09:39 02/21/17 09:39 02/21/17 09:39 - Laboratory Result Diagrams: 02/21/17 11:25 Laboratory results interpreted by me: 02/21/17 02/21/17 11:15 11:25 Hgb 10.8 L Hct 33.6 L MCH 26.4 L RDW 15.6 H Urine Urobilinogen 2.0 H Discharge - Discharge Clinical Impression: Dysmenorrhea Condition: Stable Disposition: HOME, SELF-CARE Instructions: Anti-Inflammatory Medication ([facility]), Dysmenorrhea ([facility]) Additional Instructions: Your labs are normal today Your hormone is back to normal Follow up with [facility] if symptoms persist and period does not start Prescriptions: Ibuprofen [Motrin 800 Mg Tablet] 800 mg PO Q6H #20 tablet
[2017-02-21 11:40] LABS: ABSOLUTE BASOPHILS # (AUTO) 0.1 10^3/uL (0.0-0.2); ABSOLUTE EOSINOPHILS # (AUTO) 0.2 10^3/uL (0.0-0.6); ABSOLUTE LYMPHOCYTES (AUTO) 1.8 10^3/uL (0.5-4.7); ABSOLUTE MONOCYTES (AUTO) 0.6 10^3/uL (0.1-1.4); ABSOLUTE NEUT (AUTO) 4.1 10^3/uL (1.7-8.2); BASOPHILS % (AUTO) 0.8 % (0-2); EOSINOPHILS % (AUTO) 3.1 % (0-6); HEMATOCRIT 33.6 % (36.0-47.0); HEMOGLOBIN 10.8 g/dL (12.0-15.5); HGB HCT DIFFERENCE -1.2; LYMPHOCYTES % (AUTO) 26.7 % (13-45); MEAN CORPUSCULAR HEMOGLOBIN 26.4 pg (27.0-33.4); MEAN CORPUSCULAR HGB CONC 32.2 g/dL (32.0-36.0); MEAN CORPUSCULAR VOLUME 82 fl (80-97); MONOCYTES % (AUTO) 8.4 % (3-13); RED CELL DISTRIBUTION WIDTH 15.6 % (11.5-14.0); WHITE BLOOD COUNT 6.7 10^3/uL (4.0-10.5)
[2017-02-21 11:42] LABS: APPEARANCE,URINE SLIGHTLY-CLOUDY; BILIRUBIN,URINE NEGATIVE (NEGATIVE); GLUCOSE, URINE NEGATIVE (NEGATIVE); KETONES,URINE NEGATIVE (NEGATIVE); LEUKOCYTE ESTERASE,URINE NEGATIVE (NEGATIVE); NITRITE,URINE NEGATIVE (NEGATIVE); PROTEIN,URINE NEGATIVE (NEGATIVE); URINE SPECIFIC GRAVITY 1.023
[2017-02-21 13:35] VITALS: BP 124/71
[2017-02-21 15:09] LABS: CHLAM PCR NOT DETECTED (NOT DETECT)
== END 2017-02-21 13:33 | disposition home or self-care (01) ==
LOC: ER 09:14
DX: N94.6 Dysmenorrhea, unspecified (principal); R10.30 Lower abdominal pain, unspecified; R11.0 Nausea; Z87.59 Personal history of other complications of pregnancy, childbirth and the puerperium
CPT/HCPCS: 36415; 81001; 84702; 85025; 87491; 87591; 99284

== ENCOUNTER → 2017-03-19 | Outpatient (CLI) | payer MEDICAID | LOC: OD 10:07 | PROVIDERS: ATTEND Advanced Practice Midwife | DX: R10.2 Pelvic and perineal pain (principal) | CPT/HCPCS: 36415; 84702 ==

== ENCOUNTER → 2017-03-21 | Outpatient (CLI) | payer MEDICAID | LOC: OD 11:40 | PROVIDERS: ATTEND Advanced Practice Midwife | DX: O20.0 Threatened abortion (principal) | CPT/HCPCS: 36415; 84702 ==

== ENCOUNTER 2017-04-19 07:39 | Emergency (ER) | payer MEDICAID ==
--- NOTE | 2017-04-19 09:12 | ER Document Report ---
ED GI/ - General Chief Complaint: Abdominal Pain Stated Complaint: ABDOMINAL PAIN Time Seen by Provider: 04/19/17 08:51 Mode of Arrival: Ambulatory Information source: Patient Notes: Patient is a 22-year-old female approximately 8 weeks who presents to the ER today for lower abdominal cramping 2 days. Patient states that she took Tylenol yesterday but that it did not help her. She denies any vaginal bleeding, abnormal vaginal discharge, dysuria, hematuria. She states the pain is slightly worse on the right side. She has a history of an ectopic "a few months ago" that she received methotrexate injection for. She denies any fevers or chills. TRAVEL OUTSIDE OF THE [place] IN LAST 30 DAYS: No - Related Data Allergies/Adverse Reactions: No Known Allergies Allergy (Verified 04/19/17 07:43) Past Medical History - General Information source: Patient - Social History Smoking Status: Unknown if Ever Smoked Family History: None Pulmonary Medical History: Reports: Hx Asthma - childhood Renal/ Medical History: Denies: Hx Peritoneal Dialysis - Immunizations Immunizations up to date: Yes Hx Diphtheria, Pertussis, Tetanus Vaccination: Yes Review of Systems - Review of Systems Constitutional: No symptoms reported EENT: No symptoms reported Cardiovascular: No symptoms reported Respiratory: No symptoms reported Gastrointestinal: No symptoms reported Genitourinary: No symptoms reported Female Genitourinary: See HPI Musculoskeletal: No symptoms reported Skin: No symptoms reported Hematologic/Lymphatic: No symptoms reported Neurological/Psychological: No symptoms reported Physical Exam - Vital signs Vitals: Temp Pulse Resp BP Pulse Ox 98.4 F 83 14 115/72 99 04/19/17 07:41 04/19/17 07:41 04/19/17 07:41 04/19/17 07:41 04/19/17 07:41 - Notes Notes: PHYSICAL EXAMINATION: GENERAL: Well-appearing and in no acute distress. HEAD: Atraumatic, normocephalic. EYES: Pupils equal round and reactive to light, extraocular movements intact, sclera anicteric, conjunctiva are normal. ENT: ear canals without erythema or foreign body, TMs pearly cronin with good bony landmarks, nares patent, oropharynx clear without exudates. Moist mucous membranes. NECK: Normal range of motion, supple without lymphadenopathy LUNGS: CTAB and equal. No wheezes rales or rhonchi. HEART: Regular rate and rhythm without murmurs ABDOMEN: Soft, no tenderness. No guarding, no rebound BACK: no vertebral tenderness, normal ROM GI/: no CVA tenderness EXTREMITIES: Normal range of motion, no pitting edema. No cyanosis. NEUROLOGICAL: Cranial nerves grossly intact. Normal sensory/motor exams. PSYCH: Normal mood, normal affect. SKIN: Warm, Dry, normal turgor, no rashes or lesions noted Course - Re-evaluation Re-evalutation: 04/19/17 13:48 Patient is nontender to abdominal exam, normal vital signs here, afebrile, patient has a normal intrauterine with a heart rate of 158 bpm at 7 weeks and 5 days gestation. no signs of ectopic . Patient likely does has normal cramping. - Vital Signs Vital signs: Temp Pulse Resp BP Pulse Ox 98.4 F 83 16 115/72 99 04/19/17 07:41 04/19/17 07:41 04/19/17 09:06 04/19/17 07:41 04/19/17 07:41 - Laboratory Result Diagrams: 04/19/17 09:10 04/19/17 09:10 Laboratory results interpreted by me: 04/19/17 04/19/17 04/19/17 09:10 09:10 09:10 WBC 12.5 H Hgb 10.6 L Hct 32.3 L MCV 79 L MCH 25.8 L RDW 15.0 H Absolute Neutrophils 9.0 H BUN 6 L Creatinine 0.48 L Direct Bilirubin 0.5 H Beta HCG, Quant 725949.00 H Urine Urobilinogen 4.0 H Ur Leukocyte Esterase SMALL H Discharge - Discharge Clinical Impression: Abdominal cramping affecting Condition: Stable Disposition: HOME, SELF-CARE Additional Instructions: Return immediately for any new or worsening symptoms. Follow up with primary care provider, call tomorrow to make followup appointment. Referrals: [facility] [Provider Group] - Follow up as needed
[2017-04-19 09:18] LABS: ABSOLUTE BASOPHILS # (AUTO) 0.2 10^3/uL (0.0-0.2); ABSOLUTE EOSINOPHILS # (AUTO) 0.2 10^3/uL (0.0-0.6); ABSOLUTE LYMPHOCYTES (AUTO) 2.3 10^3/uL (0.5-4.7); ABSOLUTE MONOCYTES (AUTO) 0.9 10^3/uL (0.1-1.4); BASOPHILS % (AUTO) 1.2 % (0-2); EOSINOPHILS % (AUTO) 1.4 % (0-6); HEMATOCRIT 32.3 % (36.0-47.0); HEMOGLOBIN 10.6 g/dL (12.0-15.5); HGB HCT DIFFERENCE -0.5; LYMPHOCYTES % (AUTO) 18.3 % (13-45); MEAN CORPUSCULAR HEMOGLOBIN 25.8 pg (27.0-33.4); MEAN CORPUSCULAR HGB CONC 32.8 g/dL (32.0-36.0); MEAN CORPUSCULAR VOLUME 79 fl (80-97); MONOCYTES % (AUTO) 7.5 % (3-13); RED BLOOD COUNT 4.11 10^6/uL (3.72-5.28); SEGMENTED NEUTROPHILS % (AUTO) 71.6 % (42-78); WHITE BLOOD COUNT 12.5 10^3/uL (4.0-10.5)
[2017-04-19 09:25] LABS: APPEARANCE,URINE SLIGHTLY-CLOUDY; BILIRUBIN,URINE NEGATIVE (NEGATIVE); GLUCOSE, URINE NEGATIVE (NEGATIVE); KETONES,URINE NEGATIVE (NEGATIVE); LEUKOCYTE ESTERASE,URINE SMALL (NEGATIVE); NITRITE,URINE NEGATIVE (NEGATIVE); PROTEIN,URINE NEGATIVE (NEGATIVE)
[2017-04-19 09:48] LABS: ALANINE AMINOTRANSFERASE 22 U/L (9-52); ALBUMIN 4.5 g/dL (3.5-5.0); ALKALINE PHOSPHATASE 64 U/L (38-126); ANION GAP 15 (5-19); ASPARTATE AMINO TRANSFERASE 25 U/L (14-36); BILIRUBIN,DIRECT 0.5 mg/dL (0.0-0.4); BILIRUBIN,TOTAL 0.7 mg/dL (0.2-1.3); BLOOD UREA NITROGEN 6 mg/dL (7-20); CALCIUM 9.8 mg/dL (8.4-10.2); CARBON DIOXIDE 22 mmol/L (22-30); CHLORIDE 102 mmol/L (98-107); CREATININE RESULT 0.48 mg/dL (0.52-1.25); GLUCOSE 91 mg/dL (75-110); POTASSIUM 4.1 mmol/L (3.6-5.0); SODIUM 138.7 mmol/L (137-145); TOTAL PROTEIN 7.8 g/dL (6.3-8.2)
--- NOTE | 2017-04-19 13:28 | RADIOLOGY REPORT (SQ) ---
EXAM DESCRIPTION: U/S [id number] TRNABD 1GES W/ODOP COMPLETED DATE/TIME: 04/19/2017 1:11 pm REASON FOR STUDY: rlq pain, , hx ectopic COMPARISON: None. TECHNIQUE: Transabdominal static and realtime grayscale images acquired of the pelvis. Additional se lected spectral and color Doppler images recorded. All images stored on PACs. bHCG: Not applicable. LIMITATIONS: None. FINDINGS: FETUS: EGA: 7 weeks 5 days MADDIE: 12/01/2017 EFW: Not applicable. FHR: 158 beats per minute. ELKIN: Adequate amount. PLACENTA: Left guided CERVICAL LENGTH: Not adequately assessed. Closed. UTERUS: No masses. RIGHT ADNEXA: Ovary not identified. No adnexal free fluid. No adnexal masses. LEFT ADNEXA: Normal ovary with normal vascular flow. No adnexal free fluid. No adnexal masses. FREE FLUID: None. OTHER: No other significant finding. IMPRESSION: LIVING INTRAUTERINE . ESTIMATED GESTATIONAL AGE:7 weeks 5 days Trimester of : First trimester - 0 to 13 weeks. TECHNICAL DOCUMENTATION: JOB ID: [id number] [employer]- All Rights Reserved
[2017-04-19 14:06] VITALS: BP 125/72
== END 2017-04-19 14:00 | disposition home or self-care (01) ==
LOC: ER 07:39
DX: O26.91 Pregnancy related conditions, unspecified, first trimester (principal); R10.30 Lower abdominal pain, unspecified; Z3A.08 8 weeks gestation of pregnancy
CPT/HCPCS: 36415; 76801; 80053; 81001; 83690; 84702; 85025; 99284

== ENCOUNTER 2017-08-16 13:51 | Outpatient (CLI) | payer MEDICAID ==
[2017-08-16 14:23] LABS: APPEARANCE,URINE SLIGHTLY-CLOUDY; BILIRUBIN,URINE NEGATIVE (NEGATIVE); COLOR,URINE YELLOW; GLUCOSE, URINE 50 mg/dL (NEGATIVE); KETONES,URINE NEGATIVE (NEGATIVE); LEUKOCYTE ESTERASE,URINE MODERATE (NEGATIVE); NITRITE,URINE NEGATIVE (NEGATIVE); PROTEIN,URINE NEGATIVE (NEGATIVE); URINE SPECIFIC GRAVITY 1.013
[2017-08-16 14:42] LABS: URINE AMPHETAMINES SCREEN NEGATIVE; URINE BARBITURATES SCREEN NEGATIVE; URINE BENZODIAZEPINES SCREEN NEGATIVE; URINE COCAINE SCREEN NEGATIVE; URINE MARIJUANA (THC) SCREEN NEGATIVE; URINE METHADONE SCREEN NEGATIVE; URINE PHENCYCLIDINE SCREEN NEGATIVE
[2017-08-16 15:16] LABS: EPITHELIALS (WET MOUNT) 3+ EPITHELIALS SEEN; T.VAGINALIS (WET MOUNT) NO TRICHOMONAS SEEN; WBCS (WET MOUNT) 1+ WBCS SEEN; YEAST (WET MOUNT) NO YEAST SEEN
--- NOTE | 2017-08-16 15:52 | RADIOLOGY REPORT (SQ) ---
EXAM DESCRIPTION: U/S OB LIMITED COMPLETED DATE/TIME: 08/16/2017 3:15 pm REASON FOR STUDY: cervical length- cramping COMPARISON: None. TECHNIQUE: Limited transvaginal grayscale ultrasound for evaluation of specific requested obstetrica l parameters. LIMITATIONS: None. FINDINGS: CERVICAL LENGTH: 3 cm Closed. FHR: 158 beats per minute. PRESENTATION: Cephalic. OTHER: Posterior placenta is identified. IMPRESSION: LIMITED OBSTETRICAL ULTRASOUND WITH MEASURED PARAMETERS DELINEATED ABOVE. Trimester of : Second trimester - 13 weeks 1 day to 27 weeks 6 days. TECHNICAL DOCUMENTATION: JOB ID: [id number] [employer]- All Rights Reserved
[2017-08-16 16:35] LABS: CHLAM PCR NOT DETECTED (NOT DETECT); GON PCR NOT DETECTED (NOT DETECT)
== END 2017-08-16 15:38 | disposition home or self-care (01) ==
LOC: LC 13:51
PROVIDERS: ATTEND Obstetrics & Gynecology
PROC: 4A1HXCZ Monitoring of Products of Conception, Cardiac Rate, External Approach (ICD-10-PCS; principal; 2017-08-16)
DX: O26.892 Other specified pregnancy related conditions, second trimester (principal); R10.2 Pelvic and perineal pain; O99.282 Endocrine, nutritional and metabolic diseases complicating pregnancy, second trimester; E86.0 Dehydration; Z3A.25 25 weeks gestation of pregnancy
CPT/HCPCS: 76815; 80307; 81005; 87210; 87491; 87591

== ENCOUNTER 2017-08-22 12:22 | Emergency (ER) | payer MEDICAID ==
[2017-08-22 12:30] VITALS: BP 120/81
== END 2017-08-22 13:50 | disposition left against medical advice (07) ==
LOC: ER 12:22
DX: Z53.21 Procedure and treatment not carried out due to patient leaving prior to being seen by health care provider (principal)

== ENCOUNTER 2017-10-22 09:41 | Outpatient (CLI) | payer MEDICAID ==
--- NOTE | 2017-10-22 11:14 | Non Stress Test Report ---
Non Stress Test Datetime Report Generated by CPN: 10/22/2017 11:14 DEMOGRAPHIC EGA NST: 34.4 INDICATION Indication for Study: Diabetes Mellitus; Ordered by Provider MONITORING Monitor Explained: Monitor Explained; Test Explained; Patient Verbalized Understanding Time on Monitor: 10/22/2017 09:50 Time off Monitor: 10/22/2017 10:13 NST Duration: 23 NST INTERVENTIONS NST Interventions: PO Hydration Physician Notified NST: H BARBARA, CNM BABY A: [id number] BABY A Movement : Present Contraction Frequency : RARE FHR Baseline : 145 Accelerations : 15X15 Variability : Moderate 6-25bpm NST Review: Meets Criteria for Reactive NST NST Review and Verified By : GELY ESCALERA RN NST Results: Reactive NST REPORT Report Trigger: Send Report
== END 2017-10-22 10:15 | disposition home or self-care (01) ==
LOC: LC 09:41
PROVIDERS: ATTEND Obstetrics & Gynecology Gynecology
PROC: 4A1HXCZ Monitoring of Products of Conception, Cardiac Rate, External Approach (ICD-10-PCS; principal; 2017-10-22)
DX: O24.415 Gestational diabetes mellitus in pregnancy, controlled by oral hypoglycemic drugs (principal); Z3A.34 34 weeks gestation of pregnancy
CPT/HCPCS: 59025

== ENCOUNTER 2017-10-23 18:31 | Outpatient (CLI) | payer MEDICAID ==
[2017-10-23 19:01] LABS: APPEARANCE,URINE SLIGHTLY-CLOUDY; BILIRUBIN,URINE NEGATIVE (NEGATIVE); COLOR,URINE YELLOW; GLUCOSE, URINE 150 mg/dL (NEGATIVE); KETONES,URINE TRACE mg/dL (NEGATIVE); LEUKOCYTE ESTERASE,URINE MODERATE (NEGATIVE); NITRITE,URINE NEGATIVE (NEGATIVE); PROTEIN,URINE NEGATIVE (NEGATIVE); URINE SPECIFIC GRAVITY 1.017
[2017-10-23 19:14] LABS: URINE AMPHETAMINES SCREEN NEGATIVE; URINE BARBITURATES SCREEN NEGATIVE; URINE BENZODIAZEPINES SCREEN NEGATIVE; URINE COCAINE SCREEN NEGATIVE; URINE MARIJUANA (THC) SCREEN NEGATIVE; URINE METHADONE SCREEN NEGATIVE; URINE PHENCYCLIDINE SCREEN NEGATIVE
--- NOTE | 2017-10-23 20:15 | RADIOLOGY REPORT (SQ) ---
EXAM DESCRIPTION: U/S PROFILE W/O STRESS COMPLETED DATE/TIME: 10/23/2017 8:05 pm REASON FOR STUDY: BPP decrease movement COMPARISON: 08/16/2017 TECHNIQUE: Limited springer-scale realtime and static images of the fetus to measure specified parameter s. LIMITATIONS: None. FINDINGS: HEART RATE: 165 beginning study and 155 at and of study beats per minute. ELKIN: Normal. BREATHING MOVEMENT: 2 points. MOVEMENT: 2 points. POSTURE AND TONE: 2 points. QUALITATIVE ELKIN: 2 points. OTHER: No other significant finding. IMPRESSION: BIOPHYSICAL PROFILE: 02/06. Trimester of : Third - 28 weeks to delivery COMMENT: BREATHING MOVEMENTS: 2 POINTS: PRESENT 0 POINTS: ABSENT MOTION: 2 POINTS: PRESENT 0 POINTS: ABSENT TONE: 2 POINTS: PRESENT 0 POINTS: ABSENT AMNIOTIC FLUID VOLUME: 2 POINTS: LARGEST POCKET GREATER THAN 2 CM DEPTH. 0 POINTS: NO POCKET OF 2 CM. TECHNICAL DOCUMENTATION: JOB ID: [id number] [employer]- All Rights Reserved Reading location - IP/workstation name: [email or web address]
== END 2017-10-23 20:45 | disposition home or self-care (01) ==
LOC: LC 18:31
PROVIDERS: ATTEND Obstetrics & Gynecology
PROC: 4A1HXCZ Monitoring of Products of Conception, Cardiac Rate, External Approach (ICD-10-PCS; principal; 2017-10-23)
DX: O36.8130 Decreased fetal movements, third trimester, not applicable or unspecified (principal); Z3A.34 34 weeks gestation of pregnancy
CPT/HCPCS: 76819; 80307; 81001

== ENCOUNTER 2017-10-29 09:40 | Outpatient (CLI) | payer MEDICAID | END 2017-10-29 10:18 | disposition home or self-care (01) | LOC: LC 09:40 | PROVIDERS: ATTEND Student in an Organized Health Care Education/Training Program | PROC: 4A1HXCZ Monitoring of Products of Conception, Cardiac Rate, External Approach (ICD-10-PCS; principal; 2017-10-29) | DX: O24.415 Gestational diabetes mellitus in pregnancy, controlled by oral hypoglycemic drugs (principal); Z3A.35 35 weeks gestation of pregnancy | CPT/HCPCS: 59025 ==

== ENCOUNTER 2017-11-15 10:43 | Outpatient (CLI) | payer MEDICAID ==
[2017-11-15 11:33] LABS: APPEARANCE,URINE CLOUDY; BILIRUBIN,URINE NEGATIVE (NEGATIVE); CALCIUM OXALATE CRYSTALS,URINE FEW /HPF; COLOR,URINE YELLOW; GLUCOSE, URINE NEGATIVE (NEGATIVE); KETONES,URINE NEGATIVE (NEGATIVE); LEUKOCYTE ESTERASE,URINE LARGE (NEGATIVE); NITRITE,URINE NEGATIVE (NEGATIVE); PROTEIN,URINE NEGATIVE (NEGATIVE); URINE SPECIFIC GRAVITY 1.015
[2017-11-15 11:50] LABS: ABSOLUTE EOSINOPHILS # (AUTO) 0.1 10^3/uL (0.0-0.6); ABSOLUTE LYMPHOCYTES (AUTO) 1.8 10^3/uL (0.5-4.7); ABSOLUTE NEUT (AUTO) 8.3 10^3/uL (1.7-8.2); BASOPHILS % (AUTO) 0.3 % (0-2); HEMATOCRIT 32.2 % (36.0-47.0); HEMOGLOBIN 10.6 g/dL (12.0-15.5); LYMPHOCYTES % (AUTO) 15.6 % (13-45); MEAN CORPUSCULAR HEMOGLOBIN 27.4 pg (27.0-33.4); MEAN CORPUSCULAR HGB CONC 32.9 g/dL (32.0-36.0); MEAN CORPUSCULAR VOLUME 83 fl (80-97); PLATELET COUNT 151 10^3/uL (150-450); RED BLOOD COUNT 3.86 10^6/uL (3.72-5.28); RED CELL DISTRIBUTION WIDTH 15.6 % (11.5-14.0); SEGMENTED NEUTROPHILS % (AUTO) 74.1 % (42-78); TOTAL CELLS COUNTED % (AUTO) 100 %; WHITE BLOOD COUNT 11.2 10^3/uL (4.0-10.5)
[2017-11-15 11:51] LABS: URINE AMPHETAMINES SCREEN NEGATIVE; URINE BARBITURATES SCREEN NEGATIVE; URINE BENZODIAZEPINES SCREEN NEGATIVE; URINE COCAINE SCREEN NEGATIVE; URINE MARIJUANA (THC) SCREEN NEGATIVE; URINE METHADONE SCREEN NEGATIVE; URINE PHENCYCLIDINE SCREEN NEGATIVE
[2017-11-15 12:01] LABS: UR PRO/CREAT RATIO RESULT 0.3 mg/mg (0.0-0.2); URINE CREATININE 85.9 mg/dL (16-327); URINE PROTEIN 24.8 mg/dL (<12)
[2017-11-15 12:08] LABS: ALANINE AMINOTRANSFERASE 23 U/L (9-52); ALBUMIN 3.6 g/dL (3.5-5.0); ALKALINE PHOSPHATASE 143 U/L (38-126); ANION GAP 8 (5-19); ASPARTATE AMINO TRANSFERASE 23 U/L (14-36); BILIRUBIN,DIRECT 0.2 mg/dL (0.0-0.4); BILIRUBIN,TOTAL 0.5 mg/dL (0.2-1.3); BLOOD UREA NITROGEN 7 mg/dL (7-20); CALCIUM 9.7 mg/dL (8.4-10.2); CARBON DIOXIDE 22 mmol/L (22-30); CHLORIDE 107 mmol/L (98-107); GLUCOSE 60 mg/dL (75-110); LDH 431 U/L (313-618); POTASSIUM 4.3 mmol/L (3.6-5.0); SODIUM 137.1 mmol/L (137-145); TOTAL PROTEIN 6.4 g/dL (6.3-8.2); URIC ACID 4.2 mg/dL (2.5-6.2)
--- NOTE | 2017-11-15 12:52 | Non Stress Test Report ---
Non Stress Test Datetime Report Generated by CPN: 11/15/2017 12:51 DEMOGRAPHIC EGA NST: 38.0 EGA NST: 35.4 INDICATION Indication for Study: Diabetes Mellitus; Ordered by Provider Indication for Study: Diabetes Mellitus MONITORING Monitor Explained: Monitor Explained; Test Explained; Patient Verbalized Understanding Monitor Explained: Monitor Explained; Test Explained; Patient Verbalized Understanding Time on Monitor: 11/15/2017 11:00 Time on Monitor: 10/29/2017 09:54 Time off Monitor: 11/15/2017 12:19 Time off Monitor: 10/29/2017 10:14 NST Duration: 79 NST Duration: 20 NST INTERVENTIONS NST Interventions: PO Hydration NST Interventions: PO Hydration; Reposition Patient Physician Notified NST: P Hanna CNM Physician Notified NST: Joseph BABY A: [id number] BABY A Movement : Present Movement : Present Contraction Frequency : irr Contraction Frequency : irr FHR Baseline : 135 FHR Baseline : 145 Accelerations : 10X10 Accelerations : 15X15 Decelerations : None Decelerations : None Variability : Moderate 6-25bpm Variability : Moderate 6-25bpm NST Review: Meets Criteria for Reactive NST NST Review: Meets Criteria for Reactive NST NST Review and Verified By : German Crump RN NST Results: Reactive NST Results: Reactive NST REPORT Report Trigger: Send Report
== END 2017-11-15 12:33 | disposition home or self-care (01) ==
LOC: LC 10:43
PROVIDERS: ATTEND Obstetrics & Gynecology
PROC: 4A1HXCZ Monitoring of Products of Conception, Cardiac Rate, External Approach (ICD-10-PCS; principal; 2017-11-15)
DX: O13.3 Gestational [pregnancy-induced] hypertension without significant proteinuria, third trimester (principal); O24.419 Gestational diabetes mellitus in pregnancy, unspecified control; Z3A.38 38 weeks gestation of pregnancy
CPT/HCPCS: 36415; 59025; 80053; 80307; 81001; 82570; 83615; 84156; 84550; 85025

== ENCOUNTER 2017-11-18 16:21 | Inpatient (IN) | payer MEDICAID ==
[2017-11-18 17:13] LABS: AMNISURE (ROM) NEGATIVE (NEGATIVE); APPEARANCE,URINE SLIGHTLY-CLOUDY; BILIRUBIN,URINE NEGATIVE (NEGATIVE); COLOR,URINE YELLOW; GLUCOSE, URINE NEGATIVE (NEGATIVE); KETONES,URINE NEGATIVE (NEGATIVE); LEUKOCYTE ESTERASE,URINE MODERATE (NEGATIVE); NITRITE,URINE NEGATIVE (NEGATIVE); PROTEIN,URINE 30 mg/dL (NEGATIVE); URINE SPECIFIC GRAVITY 1.024
[2017-11-18 17:28] LABS: URINE AMPHETAMINES SCREEN NEGATIVE; URINE BARBITURATES SCREEN NEGATIVE; URINE BENZODIAZEPINES SCREEN NEGATIVE; URINE COCAINE SCREEN NEGATIVE; URINE MARIJUANA (THC) SCREEN NEGATIVE; URINE METHADONE SCREEN NEGATIVE; URINE PHENCYCLIDINE SCREEN NEGATIVE
[2017-11-18 17:53] LABS: BACTERIA (WET MOUNT) 3+ BACTERIA SEEN; RBCS (WET MOUNT) 1+ RBCS SEEN; T.VAGINALIS (WET MOUNT) NO TRICHOMONAS SEEN; WBCS (WET MOUNT) 2+ WBCS SEEN; YEAST (WET MOUNT) NO YEAST SEEN
[2017-11-18 19:26] LABS: ABSOLUTE BASOPHILS # (AUTO) 0.1 10^3/uL (0.0-0.2); ABSOLUTE EOSINOPHILS # (AUTO) 0.2 10^3/uL (0.0-0.6); ABSOLUTE NEUT (AUTO) 8.6 10^3/uL (1.7-8.2); BASOPHILS % (AUTO) 0.9 % (0-2); EOSINOPHILS % (AUTO) 1.4 % (0-6); HEMATOCRIT 32.1 % (36.0-47.0); HEMOGLOBIN 10.5 g/dL (12.0-15.5); LYMPHOCYTES % (AUTO) 16.9 % (13-45); MEAN CORPUSCULAR HEMOGLOBIN 27.4 pg (27.0-33.4); MEAN CORPUSCULAR HGB CONC 32.8 g/dL (32.0-36.0); MEAN CORPUSCULAR VOLUME 84 fl (80-97); MONOCYTES % (AUTO) 8.2 % (3-13); PLATELET COUNT 159 10^3/uL (150-450); RED BLOOD COUNT 3.84 10^6/uL (3.72-5.28); RED CELL DISTRIBUTION WIDTH 15.5 % (11.5-14.0); SEGMENTED NEUTROPHILS % (AUTO) 72.6 % (42-78); TOTAL CELLS COUNTED % (AUTO) 100 %; WHITE BLOOD COUNT 11.8 10^3/uL (4.0-10.5)
--- NOTE | 2017-11-18 20:04 | Admission Physical ---
Datetime Report Generated by CPN: 11/18/2017 20:04 CURRENT ADMISSION Chief Complaint: Uterine Contractions Indication for Induction: Not Applicable Admit Impression : Term, Intrauterine Admit Plan: Initiate Labor Protocol ALLERGIES Medication Allergies: No Medication Allergies: No Known Allergies (11/15/2017) Latex: Latex Allergies Food Allergies: N/A Environmental Allergies: N/A OBSTETRICAL HISTORY EDC: 11/29/2017 00:00 : 2 Para: 0 Term: 0 : 0 SAB: 1 IAB: 0 Ectopic: 1 Livin Cesareans: 0 VBACs: 0 Multiple Births: 0 Gestational Diabetes: No Rh Sensitization: No Incompetent Cervix: No AZUL: No Infertility: No ART Treatment: No Uterine Anomaly: No IUGR: No Hx Previous C/S: No Macrosomia: No Hx Loss/Stillborn: No PIH: No Hx : No Placenta Previa/Abruption: No Depression/PP Depression: No PTL/PROM: No Post Hemorrhage: No Current Procedures: Ultrasound; NST Obstetrical History Comments: G1 - 2016, SAB at 7 weeks (ectopic) G2 - Current SEE RECORDS Alcohol: No Marijuana : No Cocaine: No Other Illicit Drugs: No Cigarettes: Never Smoker. [id number] MEDICAL HISTORY Diabetes: Yes Diabetes Type: Gestational Diabetes Blood Transfusion: No Pulmonary Disease (Asthma, TB): Yes Breast Disease: No Hypertension: No Certified Alcohol Counselor Surgery: No Heart Disease: No Hosp/Surgery: No Autoimmune Disorder: No Anesthetic Complications: No Kidney Disease: No Abnormal Pap Smear: No Neuro/Epilepsy: No Psychiatric Disorders: No Other Medical Diseases: No Hepatitis/Liver Disease: No Significant Family History: No Varicosities/Phlebitis: No Trauma/Violence : No Thyroid Dysfunction: No Medical History Comments: Used to have asthma as a child INFECTIOUS HISTORY Gonorrhea: No Genital Herpes: No Chlamydia: No Tuberculosis: No Syphilis: No Hepatitis: No HIV/AIDS Exposure: No Rash or Viral Illness: No HPV: No PHYSICAL EXAM General: Normal HEENT: Normal Neurologic: Normal Thyroid: Normal Heart: Normal Lungs: Normal Breast: Deferred Back: Normal Abdomen: Normal Genitourinary Exam: Normal Extremities: Normal DTRs: Normal Pelvic Type: Adequate FETUS A EGA: 38.3 PLANS FOR LABOR AND DELIVERY Labor and Delivery: None Pain Management: Natural Feeding Preference: Formula Benefit of Breast Feed Discussed: Yes Circumcision: Yes INFORMED CONSENT Signature: with User ID: [email or web address]
--- NOTE | 2017-11-18 23:30 | RADIOLOGY REPORT (SQ) ---
EXAM DESCRIPTION: U/S OB LIMITED COMPLETED DATE/TIME: 11/18/2017 10:39 pm REASON FOR STUDY: ELKIN COMPARISON: None. TECHNIQUE: Limited transabdominal grayscale ultrasound for evaluation of specific requested obstetri татьяна parameters. LIMITATIONS: None. FINDINGS: ELKIN: 7.7 cm. FHR: 157 beats per minute. OTHER: No other significant findings. IMPRESSION: LIMITED OBSTETRICAL ULTRASOUND WITH MEASURED PARAMETERS DELINEATED ABOVE. Trimester of : Third trimester - 28 weeks to delivery. TECHNICAL DOCUMENTATION: JOB ID: [id number] [id number] 2010 [employer]- All Rights Reserved Reading location - IP/workstation name: [email or web address]
[2017-11-19] MEDS ORDERED: OXYTOCIN/NORMAL SALINE 20 UNIT/1,000 ML RTUINJ ONE (04:52)
[2017-11-19] MEDS ORDERED: BUPIVACAINE HCL 0.25 % INJ/PF (2.5 MG/1 ML) 30 ML VIAL ONE (10:27)
[2017-11-19] MEDS ORDERED: EPHEDRINE SULFATE INJ 50 MG/1 ML AMPULE ONE (10:27)
[2017-11-19] MEDS ORDERED: FENTANYL/BUPIVACAINE/NS/PF 300 MCG/150 ML RTUINJ EPI ONE (10:27)
--- NOTE | 2017-11-19 11:37 | L&D Progress Notes ---
PROGRESS NOTES Datetime Report Generated by CPN: 11/19/2017 11:37 PROGRESS NOTE Impression: Normal Progression of Labor; Reassuring Heart Rate Procedures: Artificial ROM Plan: Continue Present Management; Induction Informed Consent Obtained: Vaginal Delivery Vital Signs : Reviewed Comment: More comfortable with epidural, cooks out SVE bbow felt, AROM, clear Anticipate VAGINAL EXAM Dilatation: 6 Effacement: 70 Station: -1 MEMBRANES Membranes: Ruptured Amniotic Fluid Color: Clear FETUS A FHR - Baseline: 135 Monitoring: External US Variability: Moderate 6-25bpm Accelerations: 15X15 Decelerations: Early; Variable FHR Category: Category II SIGNATURE SIGNATURE: [id number] SIGNATURE: [id number] SIGNATURE: ,[id number] SIGNATURE: ,[id number] Assignment: Sol Wright MD Signature: with User ID: [email or web address] : with User ID: [email or web address]
[2017-11-19] MEDS ORDERED: LIDOCAINE 1% INJ-PF (10 MG/ML) 30 ML SDV ONE (12:57)
[2017-11-19] MEDS ORDERED: MISOPROSTOL 0.2 MG TABLET ONE (12:57)
[2017-11-19] MEDS ORDERED: MEASLES,MUMPS&RUBELLA VACC/PF 0.5 ML VIAL SUBCUT PRN (15:35)
[2017-11-19] MEDS ORDERED: ACETAMINOPHEN WITH CODEINE #3 TABLET PO PRN ×2 (15:35)
[2017-11-19] MEDS ORDERED: ZOLPIDEM TARTRATE 5 MG TABLET PO PRN (15:35)
[2017-11-19] MEDS ORDERED: BENZOCAINE/MENTHOL AEROSOL SPRAY 56 ML TOP PRN (15:35)
[2017-11-19] MEDS ORDERED: DIBUCAINE 1% OINTMENT 28 GM TP PRN (15:35)
[2017-11-19] MEDS ORDERED: DIPH/PERTUSS(ACELL)/TETANUS VAC/PF 0.5 ML SYR (>=10YO) IM PRN (15:35)
[2017-11-19] MEDS ORDERED: OXYTOCIN/NORMAL SALINE 20 UNIT/1,000 ML RTUINJ IV PRN (15:35)
--- NOTE | 2017-11-19 15:46 | Warning Signs in Babies ---
VOD Warning Signs Datetime Report Generated by [facility]: 11/19/2017 15:46 VOD#608 -Warning Signs in Babies: Needs to be viewed. (11/19/2017 15:40:Marta Wright RN)
--- NOTE | 2017-11-19 17:09 | Delivery Summary ---
Del Sum A-C Datetime Report Generated by CPN: 11/19/2017 17:08 DELIVERY PERSONNEL DELIVERY PERSONNEL: [id number] Delivery Doctor:: Daniela Doan CNM Labor and Delivery Nurse:: Marta Wright RNnocturnist physician Nurse:: Rashmi Charles RN Nursery Nurse:: Kahlil CHRISTIAN RN Student Observers:: Raffi YOON- STUDENT [employer]arer/BRAKE REPAIR MECHANIC: Maria T Nieto, CHOP SAW OPERATOR MATERNAL INFORMATION Delivery Anesthesia: Epidural Medications After Delivery: Pitocin Bolus-Please Comment Meds After Delivery Comment: Pitocin 20 units in 1 L NS bolusing per order Maternal Complications: None Provider Comments: of viable, male infant, head, shoulders, and body delivered without difficulty, with spontaneous cry and respirations, to maternal abdomen, cord clamped X2 and infant cut free after 2 min delay. Spontaneous delivery of intact placenta via truong mechanism, appeared intact, 3 VC, vagina and perineum inspected, superficial abrasions noted, not bleeding, not repaired, hemostasis acheived with external fundal massage and IV pitocin, mother and baby in stable condition, routine pp care. LABOR SUMMARY EDC: 11/29/2017 00:00 No. Babies in Womb: 1 Attempted: No Labor Anesthesia: Epidural LABOR INFORMATION Reason for Induction: Not Applicable Onset of Labor: 11/19/2017 10:17 Complete Dilatation: 11/19/2017 15:10 Oxytocin: Augmentation Group B Beta Strep: negative Antibiotics # of Doses: 0 Antibiotics Time of Last Dose: n/a Name of Antibiotic Given: n/a Steroids Given: None Reason Steroids Not Administered: Not Applicable MEMBRANES Membranes Rupture Method: Artificial Rupture of Membranes: 11/17/2017 22:30 Length of Rupture (hr): 40.87 Amniotic Fluid Color: Clear Amniotic Fluid Amount: Moderate Amniotic Fluid Odor: Normal STAGES OF LABOR Stage 1 hr: 4 Stage 1 min: 53 Stage 2 hr: 0 Stage 2 min: 12 Stage 3 hr: 0 Stage 3 min: 4 Total Time in Labor hr: 5 Total Time in Labor min: 9 VAGINAL DELIVERY Episiotomy: None Laceration #1: None Laceration Extension #1: N/A Other Laceration: BILAT LABIAL ABRASIONS Laceration Repair: No Laceration Repair Note: none Sponge Count Correct: N/A Sharps Count Correct: N/A CSECTION DELIVERY Primary Indication: N/A Secondary Indication: N/A CSection Incidence: N/A Labor: N/A Elective: N/A CSection Incision: N/A BABY A INFORMATION Delivery Date/Time: 11/19/2017 15:22 Method of Delivery: Vaginal Born in Route : No : N/A Forceps: N/A Vacuum Extraction: N/A Shoulder Dystocia : No PRESENTATION/POSITION BABY A Presentation: Cephalic Cephalic Presentation: Vertex Vertex Position: Right Occipital Anterior Breech Presentation: N/A PLACENTA INFORMATION BABY A Placenta Delivery Time : 11/19/2017 15:26 Placenta Method of Delivery: Spontaneous Placenta Status: Delivered SCORES BABY A Heart Rate 1 min: >100 bpm Resp Effort 1 min: Good Cry Reflex Irritability 1 min: Cough or Sneeze or Pulls Away Muscle Tone 1 min: Active Motion Color 1 min: Body [place], Extremities Blue Resuscitation Effort 1 min: Tactile Stimulation SCORE 1 MIN: 9 Heart Rate 5 min: >100 bpm Resp Effort 5 min: Good Cry Reflex Irritability 5 min: Cough or Sneeze or Pulls Away Muscle Tone 5 min: Active Motion Color 5 min: Body [place], Extremities Blue Resuscitation Effort 5 min: Tactile Stimulation SCORE 5 MIN: 9 INFORMATION BABY A Gestational Age at Delivery: 38.4 Gestational Status: Early Term- 37- 38.6 Weeks Infant Outcome : Liveborn Infant Condition : Stable Infant Sex: Male IDENTIFICATION BABY A Infant Verification Date/Time: 11/19/2017 16:34 ID Band Number: [id number] Mother's Name Verified: Yes RN Verifying Infant: Tj Wright, LAZARO, Jamar Dc, RN WEIGHT/LENGTH BABY A Birthweight (gm): 3480 Weight (lb): 7 Weight (oz): 11 Infant Length (in): 20.00 Length (cm): 50.80 CORD INFORMATION BABY A No. Cord Vessels: 3 Nuchal Cord : N/A Cord Blood Taken: Yes-For Eval (Mom's Blood Type - or O+) Infant Suction: None ASSESSMENT BABY A Infant Complications: Multiple Late Decels Physical Findings at Delivery: Within Normal Limits Respirations: Appears Normal Skin to Skin: Yes School Psychologist Assistant/ALS Called : No Infant Care By: Kahlil CHRISTIAN, RN Transferred To: Remains with Mother BABY B INFORMATION : N/A SIGNATURES Assignment: Sol Wright MD Signature: with User ID: [email or web address] : with User ID: [email or web address]
[2017-11-19] MEDS: DOCUSATE SODIUM 100 MG CAPSULE PO SCH (18:39)
[2017-11-19] MEDS: FERROUS SULFATE 325 MG TABLET PO SCH (18:39)
[2017-11-19] MEDS: IBUPROFEN 800 MG TABLET PO SCH (23:40)
[2017-11-20] MEDS: IBUPROFEN 800 MG TABLET PO SCH ×3 (05:47→21:26)
[2017-11-20 07:19] LABS: HEMATOCRIT 28.8 % (36.0-47.0); HEMOGLOBIN 9.4 g/dL (12.0-15.5); MEAN CORPUSCULAR HEMOGLOBIN 27.2 pg (27.0-33.4); MEAN CORPUSCULAR HGB CONC 32.6 g/dL (32.0-36.0); MEAN CORPUSCULAR VOLUME 83 fl (80-97); PLATELET COUNT 127 10^3/uL (150-450); RED BLOOD COUNT 3.46 10^6/uL (3.72-5.28); RED CELL DISTRIBUTION WIDTH 15.5 % (11.5-14.0); WHITE BLOOD COUNT 15.1 10^3/uL (4.0-10.5)
--- NOTE | 2017-11-20 10:20 | PDOC PROGRESS REPORT ---
Subjective-OB Progress Note for:: 11/20/17 Subjective: formula feeding, pain controlled with current meds, bleeding slowing, no complaints Physical Exam (OB) Vital Signs: Temp Pulse Resp BP Pulse Ox 97.8 F 80 16 127/92 H 99 11/20/17 07:30 11/20/17 07:30 11/20/17 07:30 11/20/17 07:30 11/20/17 07:30 Intake & Output 11/19/17 11/20/17 11/21/17 06:59 06:59 06:59 Intake Total 400 Balance 400 Weight 89.9 kg - Abdomen Fundal Description: Firm Fundal Height: u/u - u/2 - Abdominal Tenderness: Nontender - Extremities Lower extremities: Jamarcus's sign - neg Calf: Normal, Nontender Objective-Diagnostic Laboratory: 11/20/17 06:56 11/20/17 11/20/17 06:56 06:56 WBC 15.1 H RBC 3.46 L Hgb 9.4 L Hct 28.8 L MCV 83 MCH 27.2 MCHC 32.6 RDW 15.5 H Plt Count 127 L Blood Type A NEGATIVE Assessment and Plan(PN) - Assessment and Plan (1) Normal vaginal delivery Is this a current diagnosis for this admission?: Yes - Time Spent with Patient Time with patient: Less than 15 minutes - Disposition Anticipated Discharge: Home Within: within 24 hours
[2017-11-20] MEDS: PRENATAL VITAMIN W DHA CAPSULE PO SCH (10:39)
[2017-11-20] MEDS: FERROUS SULFATE 325 MG TABLET PO SCH ×2 (10:39→17:54)
[2017-11-20] MEDS: SENNOSIDES/DOCUSATE 8.6-50 MG 1 EACH TABLET PO SCH (10:39)
[2017-11-20] MEDS: DOCUSATE SODIUM 100 MG CAPSULE PO SCH ×2 (10:39→17:54)
[2017-11-21] MEDS: IBUPROFEN 800 MG TABLET PO SCH (05:12)
--- NOTE | 2017-11-21 09:36 | PDOC DISCHARGE SUMMARY ---
Final Diagnosis Discharge Date: 11/21/17 - Final Diagnosis (1) Acute blood loss anemia Is this a current diagnosis for this admission?: Yes (2) Normal vaginal delivery Is this a current diagnosis for this admission?: Yes Discharge Data - Discharge Medication Prescriptions: Docusate Sodium [Colace 100 mg Capsule] 100 mg PO BID #60 capsule Ibuprofen [Motrin 800 mg Tablet] 800 mg PO Q8 #60 tablet Home Medications: No122/Iron/Folic Acid [ Multi Tablet] 1 tab PO DAILY 08/16/17 Docusate Sodium [Colace 100 mg Capsule] 100 mg PO BID #60 capsule 11/21/17 Ibuprofen [Motrin 800 mg Tablet] 800 mg PO Q8 #60 tablet 11/21/17 Gestational Age: 38.4 Reason(s) for Admission: Onset of Labor Procedures: NST Intrapartum Procedure(s): Spontaneous Vaginal Delivery - Data Baby 1 Male at 1 minute: 9 at 5 minutes: 9 Weight: 3480 kg Home with Mother: Yes Complications: No - Diagnosis Test Laboratory: Temp Pulse Resp BP Pulse Ox 98.7 F 79 16 129/81 H 100 11/21/17 08:27 11/21/17 08:27 11/21/17 08:27 11/21/17 08:27 11/21/17 08:27 11/18/17 11/18/17 11/20/17 16:42 19:13 06:56 RBC 3.84 3.46 L Hgb 10.5 L 9.4 L Hct 32.1 L 28.8 L Urine Opiates Screen NEGATIVE - Discharge information/Instructions Discharge Activity: Activity As Tolerated, Pelvic Rest, No tub bath Discharge Diet: Regular Disposition: HOME, SELF-CARE Follow up with: [facility] in: 4, Weeks
[2017-11-21] MEDS: PRENATAL VITAMIN W DHA CAPSULE PO SCH (09:47)
[2017-11-21] MEDS: FERROUS SULFATE 325 MG TABLET PO SCH (09:48)
[2017-11-21] MEDS: DOCUSATE SODIUM 100 MG CAPSULE PO SCH (09:48)
[2017-11-21] MEDS: SENNOSIDES/DOCUSATE 8.6-50 MG 1 EACH TABLET PO SCH (09:49)
[2017-11-21 12:31] VITALS: BP 128/81
== END 2017-11-21 13:20 | disposition home or self-care (01) | DRG 775 ==
LOC: LC 16:21 → LR 18:33 → 2S 11-19 18:15
PROVIDERS: ADMIT Obstetrics & Gynecology Gynecology; ATTEND Obstetrics & Gynecology Gynecology
PROC: 10E0XZZ Delivery of Products of Conception, External Approach (ICD-10-PCS; principal; 2017-11-19)
PROC: 4A1HXCZ Monitoring of Products of Conception, Cardiac Rate, External Approach (ICD-10-PCS; 2017-11-19)
PROC: 3E0234Z Introduction of Serum, Toxoid and Vaccine into Muscle, Percutaneous Approach (ICD-10-PCS; 2017-11-20)
DX: O26.893 Other specified pregnancy related conditions, third trimester (principal); D62 Acute posthemorrhagic anemia; O99.02 Anemia complicating childbirth; O76 Abnormality in fetal heart rate and rhythm complicating labor and delivery; Z67.11 Type A blood, Rh negative; Z28.21 Immunization not carried out because of patient refusal; Z91.040 Latex allergy status; Z3A.38 38 weeks gestation of pregnancy; Z37.0 Single live birth
CPT/HCPCS: 36415; 76815; 80307; 81005; 84112; 85025; 85027; 85461; 86592; 86850; 86900; 86901; 87210; 94760; C1726; J2590; J2790; J3010; J3490; Q0114

== ENCOUNTER 2018-04-23 04:15 | Emergency (ER) | payer SELFPAY ==
[2018-04-23] MEDS ORDERED: ONDANSETRON HCL INJ/PF 4 MG/2 ML SDV IV ONE (04:40)
--- NOTE | 2018-04-23 04:43 | ER Document Report ---
ED GI/ - General Chief Complaint: Epigastric Pain Stated Complaint: UPPER BODY PAIN Time Seen by Provider: 04/23/18 04:33 Notes: Patient is a 23-year-old female presenting to the emergency department complaining of epigastric and right upper quadrant pain. Patient states pain started at 2200 hrs. this evening. Patient denies vomiting, diarrhea, fever, URI symptoms, dysuria, vaginal discharge. Patient does admit to nausea. Patient states she is currently on her menstrual cycle. Patient states she has intermittently had these same pains over the last 3 weeks. Patient has never seen a doctor for them. Patient denies chest pain, shortness of breath. Past medical history: None Medications: None allergies: None Surgical history: None Patient denies illicit drug use, EtOH use, cigarette smoking. TRAVEL OUTSIDE OF THE [place] IN LAST 30 DAYS: No - Related Data Allergies/Adverse Reactions: No Known Allergies Allergy (Verified 04/23/18 04:28) Past Medical History - General Information source: Patient - Social History Smoking Status: Never Smoker Lives with: Family Family History: None Pulmonary Medical History: Reports: Hx Asthma - childhood Renal/ Medical History: Denies: Hx Peritoneal Dialysis - Immunizations Immunizations up to date: Yes Hx Diphtheria, Pertussis, Tetanus Vaccination: Yes Review of Systems - Review of Systems Constitutional: See HPI EENT: See HPI Cardiovascular: See HPI Respiratory: See HPI Gastrointestinal: See HPI Genitourinary: See HPI Female Genitourinary: See HPI Musculoskeletal: See HPI Skin: No symptoms reported Hematologic/Lymphatic: No symptoms reported Neurological/Psychological: No symptoms reported Physical Exam - Vital signs Vitals: Temp Pulse Resp BP Pulse Ox 97.5 F 59 L 20 122/76 100 04/23/18 04:28 04/23/18 04:28 04/23/18 04:28 04/23/18 04:28 04/23/18 04:28 - Notes Notes: GENERAL: Alert, interacts well. No acute distress. HEAD: Normocephalic, atraumatic. EYES: Pupils equal, round, and reactive to light. Extraocular movements intact. ENT: Oral mucosa moist, tongue midline. NECK: Full range of motion. Supple. Trachea midline. LUNGS: Clear to auscultation bilaterally, no wheezes, rales, or rhonchi. No respiratory distress. HEART: Regular rate and rhythm. No murmur ABDOMEN: Soft, non-tender. Non-distended. Bowel sounds present in all 4 quadrants. No CVA tenderness bilaterally. Positive Moore sign, no McBurney's point tenderness. EXTREMITIES: Moves all 4 extremities spontaneously. No edema, normal radial and dorsalis pedis pulses bilaterally. No cyanosis. BACK: no cervical, thoracic, lumbar midline tenderness. No saddle anesthesia, normal distal neurovascular exam. NEUROLOGICAL: Alert and oriented x3. Normal speech. cranial nerves II through XII grossly intact. PSYCH: Normal affect, normal mood. SKIN: Warm, dry, normal turgor. No rashes or lesions noted. Course - Re-evaluation Re-evalutation: Patient states after Zofran and Toradol administration her pain has subsided. Her urine shows signs of dehydration will give fluid bolus. Discussed ultrasound with patient at bedside. Discussed need to follow-up with surgeon out patient. Return precautions given. No signs of leukocytosis, liver and kidney function within normal limits. - Vital Signs Vital signs: Temp Pulse Resp BP Pulse Ox 97.5 F 59 L 20 122/76 100 04/23/18 04:28 04/23/18 04:28 04/23/18 04:28 04/23/18 04:28 04/23/18 04:28 - Laboratory Result Diagrams: 04/23/18 04:55 04/23/18 04:55 Laboratory results interpreted by me: 04/23/18 04/23/18 04:55 05:26 Hgb 9.6 L Hct 29.9 L MCV 74 L MCH 23.6 L RDW 16.4 H Urine Protein 100 H Urine Blood LARGE H Urine Urobilinogen 4.0 H Ur Leukocyte Esterase TRACE H Urine Ascorbic Acid 20 H Discharge - Discharge Clinical Impression: Cholelithiasis Qualifiers: Cholelithiasis location: gallbladder Cholecystitis presence: without cholecystitis Biliary obstruction: without biliary obstruction Qualified Code(s) : K80.20 - Calculus of gallbladder without cholecystitis without obstruction Condition: Stable Disposition: HOME, SELF-CARE Instructions: Gallbladder Disease ([facility]) Additional Instructions: As we discussed you need to follow-up with surgery, phone numbers will be within this packet. Please take prescription medicines as prescribed. Please return to the emergency room should you have uncontrolled vomiting, fever, or your pain returns. Please return to the emergency room for any other concerning symptoms. Prescriptions: Ketorolac Tromethamine [Toradol 10 mg Tablet] 10 mg PO Q8HP PRN #24 tablet PRN Reason: Ondansetron [Zofran Odt 4 mg Tablet] 1 - 2 tab PO Q4H PRN #15 tab.rapdis PRN Reason: For Nausea/Vomiting Referrals: ANGEL BARRY MD [Primary Care Provider] - Follow up as needed ANGEL GALLAGHER MD [ACTIVE STAFF] - Follow up as needed
[2018-04-23 05:11] LABS: ABSOLUTE BASOPHILS # (AUTO) 0.1 10^3/uL (0.0-0.2); ABSOLUTE EOSINOPHILS # (AUTO) 0.4 10^3/uL (0.0-0.6); ABSOLUTE MONOCYTES (AUTO) 0.6 10^3/uL (0.1-1.4); ABSOLUTE NEUT (AUTO) 6.7 10^3/uL (1.7-8.2); BASOPHILS % (AUTO) 0.7 % (0-2); EOSINOPHILS % (AUTO) 4.2 % (0-6); HEMATOCRIT 29.9 % (36.0-47.0); HEMOGLOBIN 9.6 g/dL (12.0-15.5); LYMPHOCYTES % (AUTO) 20.2 % (13-45); MEAN CORPUSCULAR HEMOGLOBIN 23.6 pg (27.0-33.4); MEAN CORPUSCULAR VOLUME 74 fl (80-97); MONOCYTES % (AUTO) 6.2 % (3-13); PLATELET COUNT 220 10^3/uL (150-450); RED BLOOD COUNT 4.06 10^6/uL (3.72-5.28); RED CELL DISTRIBUTION WIDTH 16.4 % (11.5-14.0); SEGMENTED NEUTROPHILS % (AUTO) 68.7 % (42-78); TOTAL CELLS COUNTED % (AUTO) 100 %; WHITE BLOOD COUNT 9.7 10^3/uL (4.0-10.5)
[2018-04-23 05:22] LABS: ALANINE AMINOTRANSFERASE 11 U/L (9-52); ALBUMIN 4.1 g/dL (3.5-5.0); ALKALINE PHOSPHATASE 69 U/L (38-126); ANION GAP 10 (5-19); ASPARTATE AMINO TRANSFERASE 22 U/L (14-36); BILIRUBIN,DIRECT 0.2 mg/dL (0.0-0.4); BILIRUBIN,TOTAL 0.5 mg/dL (0.2-1.3); BLOOD UREA NITROGEN 11 mg/dL (7-20); CALCIUM 9.2 mg/dL (8.4-10.2); CARBON DIOXIDE 26 mmol/L (22-30); CHLORIDE 105 mmol/L (98-107); GLUCOSE 105 mg/dL (75-110); LIPASE 59.6 U/L (23-300); POTASSIUM 4.1 mmol/L (3.6-5.0); SODIUM 140.9 mmol/L (137-145); TOTAL PROTEIN 7.2 g/dL (6.3-8.2)
--- NOTE | 2018-04-23 05:39 | RADIOLOGY REPORT (SQ) ---
EXAM DESCRIPTION: US ABDOMEN LIMITED COMPLETED DATE/TME: 04/23/2018 04:40 CLINICAL HISTORY: 23 years Female, RUQ pain Comparison: None. LIMITATIONS: None. FINDINGS: Cholelithiasis, negative sonographic Moore's test, liver, a 0.3-cm diameter common bile duct, no intrahepatic ductal dilation, 12-cm right kidney, obscured pancreas, visualized vasculature/abdominal aorta, and no significant ascites appear otherwise unremarkable. IMPRESSION: No acute findings. Cholelithiasis. Obscured pancreas.
[2018-04-23 05:51] LABS: APPEARANCE,URINE SLIGHTLY-CLOUDY; BILIRUBIN,URINE NEGATIVE (NEGATIVE); COLOR,URINE YELLOW; GLUCOSE, URINE NEGATIVE (NEGATIVE); KETONES,URINE NEGATIVE (NEGATIVE); LEUKOCYTE ESTERASE,URINE TRACE (NEGATIVE); NITRITE,URINE NEGATIVE (NEGATIVE); PROTEIN,URINE 100 mg/dL (NEGATIVE); URINE SPECIFIC GRAVITY 1.031
[2018-04-23] MEDS ORDERED: KETOROLAC TROMETHAMINE INJ/PF 30 MG/1 ML SDV IV ONE (05:51)
[2018-04-23] MEDS ORDERED: NORMAL SALINE 1000 ML 1,000 ML IV ONE ×2 (06:05)
[2018-04-23 07:34] VITALS: BP 113/72
== END 2018-04-23 07:35 | disposition home or self-care (01) ==
LOC: ER 04:15
DX: K80.20 Calculus of gallbladder without cholecystitis without obstruction (principal); R10.13 Epigastric pain; R10.11 Right upper quadrant pain; R11.0 Nausea
CPT/HCPCS: 99284; 96361; 96374; 96375; 36415; 83690; 85025; 81025; 80053; 81001; 76705; J1885; J2405; J7030